=== PATIENT | male | born 1950 | race Caucasian/White ===

== ENCOUNTER 2019-02-01 16:02 | Emergency (ER) | payer OTHER ==
--- OUTSIDE RECORDS SUMMARY | 2019-02-01 16:05 | XMS REPORT ---
:1950 Author Organization [facility] Address [address] [place] [address] [address] [place] [address] Care Team Providers Name Role Phone JULIAN ESPINOSA Unavailable Unavailable HERNAN BARAJAS Unavailable Unavailable MANDI RODRIGUEZ Unavailable Unavailable Problems This patient has no known problems. Allergies, Adverse Reactions, Alerts This patient has no known allergies or adverse reactions. Medications This patient has no known medications. Results Test Description Test Time Test Comments Text Results Atomic Results Result Comments ALPHA FETOPROTEIN (AFP), TUMOR MARKER 2018-12-01 12:04:00 Test Item Value Reference Range Comments ALPHA-FETOPROTEIN (BEAKER) (test ggkr=6179) 1187.5 ng/mL <10.0 HEPATIC FUNCTION [id number] 11:53:00 Test Item Value Reference Range Comments TOTAL PROTEIN (BEAKER) (test cqkh=552) 7.5 gm/dL 6.0-8.3 ALBUMIN (BEAKER) (test iaob=9063) 4.2 g/dL 3.5-5.0 BILIRUBIN TOTAL (BEAKER) (test jlbt=498) 0.5 mg/dL 0.2-1.2 BILIRUBIN DIRECT (BEAKER) (test tkkt=967) 0.3 mg/dL 0.1-0.5 ALKALINE PHOSPHATASE (BEAKER) (test ixjz=117) 84 U/L 40-150 AST (SGOT) (BEAKER) (test pcns=545) 24 U/L 5-34 ALT (SGPT) (BEAKER) (test aypu=680) 28 U/L 6-55 BASIC METABOLIC [id number] 11:53:00 Test Item Value Reference Range Comments SODIUM (BEAKER) (test 139 meq/L 136-145 wxpd=175) POTASSIUM (BEAKER) (test 4.0 meq/L 3.5-5.1 ohws=776) CHLORIDE (BEAKER) (test 105 meq/L 98-107 cigw=517) CO2 (BEAKER) (test 26 meq/L 22-29 apev=405) BLOOD UREA NITROGEN 17 mg/dL 7-21 (BEAKER) (test jtcx=432) CREATININE (BEAKER) (test 0.79 mg/dL 0.57-1.25 tdlk=973) GLUCOSE RANDOM (BEAKER) 97 mg/dL 70-105 (test dhhh=277) CALCIUM (BEAKER) (test 9.6 mg/dL 8.4-10.2 kbhj=409) EGFR (BEAKER) (test 98 mL/min/1.73 sq m ESTIMATED GFR IS NOT vapi=3977) ACCURATE CREATININE CLEARANCE IN PREDICTING GLOMERULAR FILTRATION RATE. ESTIMATED GFR IS NOT APPLICABLE FOR DIALYSIS PATIENTS. PROTHROMBIN [id number] 10:49:00 Test Item Value Reference Range Comments PROTIME (BEAKER) (test khxf=829) 13.6 seconds 11.9-14.2 INR (BEAKER) (test ebbt=118) 1.1 <=5.9 Effective 08/02/2018: PT Reference Range ChangeNew: 11.9-14.2 Previous: 11.7- 14.7RECOMMENDED COUMADIN/WARFARIN INR THERAPY RANGESSTANDARD DOSE: 2.0-3.0 Includes: PROPHYLAXIS for venous thrombosis, systemic embolization; TREATMENT for venous thrombosis and/or pulmonary embolus.HIGH RISK: Target INR is2.5-3.5 for patients wiht mechanical heart valves.CBC W/PLT COUNT & AUTO [id number] 10:43:00 Test Item Value Reference Range Comments WHITE BLOOD CELL COUNT (BEAKER) (test orpz=716) 5.2 K/ L 3.5-10.5 RED BLOOD CELL COUNT (BEAKER) (test uair=554) 4.17 M/ L 4.63-6.08 HEMOGLOBIN (BEAKER) (test qbhf=391) 13.9 GM/DL 13.7-17.5 HEMATOCRIT (BEAKER) (test zarw=840) 41.7 % 40.1-51.0 MEAN CORPUSCULAR VOLUME (BEAKER) (test ekoq=479) 100.0 fL 79.0-92.2 MEAN CORPUSCULAR HEMOGLOBIN (BEAKER) (test 33.3 pg 25.7-32.2 rtuv=435) MEAN CORPUSCULAR HEMOGLOBIN CONC (BEAKER) (test 33.3 GM/DL 32.3-36.5 yfqf=154) RED CELL DISTRIBUTION WIDTH (BEAKER) (test 12.2 % 11.6-14.4 xkmq=252) PLATELET COUNT (BEAKER) (test ljgf=197) 138 K/CU MM 150-450 MEAN PLATELET VOLUME (BEAKER) (test qogo=687) 9.9 fL 9.4-12.4 NUCLEATED RED BLOOD CELLS (BEAKER) (test 0 /100 WBC 0-0 ldmf=205) NEUTROPHILS RELATIVE PERCENT (BEAKER) (test 68 % cans=301) LYMPHOCYTES RELATIVE PERCENT (BEAKER) (test 24 % nxfg=327) MONOCYTES RELATIVE PERCENT (BEAKER) (test 8 % loda=876) EOSINOPHILS RELATIVE PERCENT (BEAKER) (test 1 % xvan=883) BASOPHILS RELATIVE PERCENT (BEAKER) (test 0 % dpdy=112) NEUTROPHILS ABSOLUTE COUNT (BEAKER) (test 3.55 K/ L 1.78-5.38 nwvp=607) LYMPHOCYTES ABSOLUTE COUNT (BEAKER) (test 1.23 K/ L 1.32-3.57 fbtm=289) MONOCYTES ABSOLUTE COUNT (BEAKER) (test 0.39 K/ L 0.30-0.82 kmlh=937) EOSINOPHILS ABSOLUTE COUNT (BEAKER) (test 0.03 K/ L 0.04-0.54 mtoh=465) BASOPHILS ABSOLUTE COUNT (BEAKER) (test 0.02 K/ L 0.01-0.08 fhsl=007) IMMATURE GRANULOCYTES-RELATIVE PERCENT (BEAKER) 0 % 0-1 (test zzqg=0631) [id number] 08:57:00 Test Item Value Reference Range Comments POC-CREATININE (BEAKER) 0.8 mg/dL 0.6-1.3 TESTED AT [facility] [address] [facility] (test svnu=6722) [facility] [address] POC-EGFR (BEAKER) (test 96 mL/min/1.73M2 hmpx=4276) MR, ABDOMEN, [id number] 11:32:00Referring: Dr. Luisa Benson, HCC s /p TACE Had Y-90 mapping and bland embolization Oct 2018FINAL REPORT INDICATION:Cirrhosis and history of hepatocellular carcinoma status post radioembolization October 23, 2018 and prior chemoembolization most recently June 15, 2018. COMPARISON: Abdomen MR September 11, 2018 TECHNIQUE: MR of the Abdomen WITHOUT and WITH intravenous contrast. FINDINGS:Since September 11, 2018 there has been increase in size of vein-invasive heterogeneously enhancing segment VIII mass. It measures 7 x 6 x 5 cm and previously measured 6 x 4 x 3 cm (by my own measurement). It invades the intrahepatic cava extending into the suprahepatic and intrahepatic cava. Tumor does not extend into the right atrium or to the level of the renal vein confluences. Perfusion anomaly in the posterior segment from venous obstruction. Main portal vein is patent and not invaded. Main portal vein diameter is 1.5 cm. Spleen enlarged measuring 14 cm coronal long axis. No varices and no ascites. Several gallstones are noted. No biliary ductal dilatation. Pancreas and adrenal glands unremarkable. Several benign renal cortical cysts. No renal mass or hydronephrosis. Visualized bowel loops unremarkable. No suspicious marrow replacing lesion. No pleural effusion. IMPRESSION:Cirrhosis and enlarging cava-invasive hepatocellular carcinoma. Signed: Hi Forbes MDReport Verified Date/Time: 11/30/2018 11:32:07 Reading Location: [facility] C013Y CT Body Reading Room ANG, VISCERAL [id number] 15 :15:00y90 mappingFINAL REPORT Microaggregated Albumin Injection to evaluate for shunting priorto SIR sphere injection:Hepatic angiography and MAA embolization Indication: HCC with residual segment six lesion status post TACE Modality: Sonography and fluoroscopy. Sedation: Moderate sedation was administered. 2 mg of Versed and 150 mcg of fentanyl IV was used for moderate sedation monitored under my direction. Total intra- service time of sedation was 60 minutes. The patient's vital signs were monitored throughout the procedure and recorded in the patient's medical record by the nurse. Search Specialist: Andre Escamilla MD. Records Supervisor: MD Kandi ( Fellow) Approach: Right common femoral artery Estimated blood loss: < 5 cc. Specimen: None. Fluoroscopy Time: 13.7 min.Reference Air Kerma (Ka, r): 843mGy. Technique: Informed written consent was obtained. Discussion of risks, benefits, and alternatives were made with the patient. The patient expressed understanding and agreed to proceed. A universaltimeout was performed prior to starting the procedure. All elements maximal sterile barrier technique was utilized for this procedure, including utilization of sterile scrub solution for skin prep, a large sterile sheet to cover the areas of the patient that were not prepped, and hand hygiene, mask, head covering, and sterile gown for performing radiologist and scrub technologist. Initial ultrasoundimages demonstrate patent right common femoral artery. Using ultrasound guidance, following acquisition of permanent images, the right common femoral artery was accessed using a 21- gauge micropuncture needle. A 0.018 inch wire was advanced into the abdominal aorta. The needle was exchanged for a 4 Bhutanese micropuncture sheath. The micropuncture sheath was exchanged over a 0.035 Bentson wire for a 5 Bhutanese x 10 cm vascular sheath. A 5 Bhutanese Babcock B catheter was used to cannulate the celiac axis. A DSA run was performed. Next, a 2.8 Bhutanese microcatheter was advanced over 0.016 inch microwire into theleft hepatic artery. A DSA was run was performed. Next, the microcatheter was manipulated into the right hepatic artery. A DSA run was performed. The catheter was advanced distal to the cystic artery. A DSA run was performed. From this location, technetium 99m labeled MAA was administered in conjunction with Dr. Aguilar of the nuclear medicine department. The microcatheter and base catheter were removed. Next, the inferior right phrenic artery was cannulated using a 5 Bhutanese Alena catheter. A 2.8 Bhutanese microcatheter was advanced into the inferior right phrenic artery and a DSA run was performed.The microcatheter was then advanced into a branch arising off the inferior right phrenic artery supplying the abnormal hepatic hypervascularity. From this location embolization was performed using 300-500 um embospheres until near stagnant flow was achieved. The microcatheter was retracted into the proximal inferior right phrenic artery and postembolization DSA was performed. All catheters and wires were removed. Contrast injected to the right femoral sheath. The arteriotomy was closed using a 5 Bhutanese Mynx closure device. Findings:1. Celiac arteriography demonstrates patent common hepatic, left gastric, and splenic arteries. No abnormal tumor hypervascularity identified. 2. Left hepatic artery arteriography demonstrates no abnormal tumor hypervascularity. 3. Right hepatic artery arteriography demonstrates no abnormal tumor hypervascularity to correlate with the known residual segment six lesion. Successful technetium 99m labeled MAA administration via the right hepatic artery distal to the takeoff of the cystic artery. 4. Inferior right phrenic arteriography demonstrates subtle abnormal hepatic hypervascularity arising off a branch from the proximal inferior phrenic artery. Given inability to treat this parasitized vessel with radio embolization, decision was made to proceed with bland embolization. Successful bland embolization of the branch arising off the inferior right phrenic artery until near stagnant flow achieved. Postembolization arteriography from the proximal right inferior phrenic artery demonstrates no further abnormal hepatic hypervascularity. 5. Right femoral sheath injection demonstrates patent right common femoral artery and puncture amenable for closure device. Impression: 1. Successful mesenteric/hepatic angiography and pre-radioembolization mapping study with administration of technetium 99m labeled MAA via the right hepatic artery. 2. Successful bland embolization of a parasitized branch arising off the inferior right phrenic artery supplying the residual segment 6 lesion as detailed above. Signed: Andre Escamilla MDReport Verified Date/Time: 10/24/2018 15:15:02Reading Location: [facility] B1 P048 Angio Body Reading Room TUMOR LOCALIZATION, [id number] 09:47:00Referring: Dr. Luisa Naranjo Y90 mapping - Right Lobe Reason for Exam:->y90 mappingFINAL REPORT PROCEDURE: TRACER DISTRIBUTION STUDY, WHOLE BODY with SPECT CPT CODE : 69867, 75262 CLINICAL INDICATION: Hepatocellular carcinoma PROTOCOL: A total of 2.4 mCi of Tc-99m MAA was injected by the nuclear medicine physician via an arterial catheter placed by the interventional radiologist in the right hepatic artery. Planar whole body and spot images of the chest and upper abdomen, as well as tomographic images of the liver and upper abdomen with limited CT correlation were obtained. Hepatopulmonary shunting was calculated by the geometric mean method. FINDINGS: There is irregular tracer distribution within the right lobe of the liver, primarily the posterior and inferior aspects of the right lobe. There is mild tracer accumulation in the kidneys/ urinary system, consistent with expected free pertechnetate activity. Otherwise , there is no tracer distribution outside of the liver in the abdomen. Quantitative analysis indicates 4% shunting of tracer to the lungs. IMPRESSION: 1. Tracer uptake in the liver is consistent with hepatic parenchymal disease and/or focal space occupying disease. 2. There is no abnormal extrahepatic activity . The patient is an acceptable candidate for injection of therapeutic microspheres by this criterion. 3. Shunting to the lungs is in an acceptable range for therapy. 4. Additional clinical assessment is required prior to final acceptance for Y-90 therapy. Signed: Rayshawn Aguilar MDReport Verified Date/ Time: 10/24/2018 09:47:27 Reading Location: [address] [address] Reading Room COMPREHENSIVE METABOLIC [id number] 11:47:00 Test Item Value Reference Range Comments TOTAL PROTEIN (BEAKER) 7.8 gm/dL 6.0-8.3 (test adgh=053) ALBUMIN (BEAKER) (test 4.5 g/dL 3.5-5.0 ywjq=0753) ALKALINE PHOSPHATASE 81 U/L 40-150 (BEAKER) (test dqxh=097) BILIRUBIN TOTAL (BEAKER) 0.8 mg/dL 0.2-1.2 (test aebl=692) SODIUM (BEAKER) (test 138 meq/L 136-145 yxoo=791) POTASSIUM (BEAKER) (test 4.2 meq/L 3.5-5.1 ugyi=139) CHLORIDE (BEAKER) (test 104 meq/L 98-107 dtdn=586) CO2 (BEAKER) (test 25 meq/L 22-29 ljqh=045) BLOOD UREA NITROGEN 16 mg/dL 7-21 (BEAKER) (test spei=027) CREATININE (BEAKER) (test 0.82 mg/dL 0.57-1.25 rbeg=417) GLUCOSE RANDOM (BEAKER) 103 mg/dL 70-105 (test hwdq=868) CALCIUM (BEAKER) (test 9.7 mg/dL 8.4-10.2 cenq=968) AST (SGOT) (BEAKER) (test 25 U/L 5-34 nave=179) ALT (SGPT) (BEAKER) (test 25 U/L 6-55 ndwt=584) EGFR (BEAKER) (test 94 mL/min/1.73 sq m ESTIMATED GFR IS NOT mgmi=2367) ACCURATE CREATININE CLEARANCE IN PREDICTING GLOMERULAR FILTRATION RATE. ESTIMATED GFR IS NOT APPLICABLE FOR DIALYSIS PATIENTS. BILIRUBIN, [id number] 11:47:00 Test Item Value Reference Range Comments BILIRUBIN DIRECT (BEAKER) (test xpif=230) 0.4 mg/dL 0.1-0.5 PROTHROMBIN [id number] 11:42:00 Test Item Value Reference Range Comments PROTIME (BEAKER) (test qnzi=311) 13.6 seconds 11.9-14.2 INR (BEAKER) (test hvis=562) 1.1 <=5.9 Effective 08/02/2018: PT Reference Range ChangeNew: 11.9-14.2 Previous: 11.7- 14.7RECOMMENDED COUMADIN/WARFARIN INR THERAPY RANGESSTANDARD DOSE: 2.0-3.0 Includes: PROPHYLAXIS for venous thrombosis, systemic embolization; TREATMENT for venous thrombosis and/or pulmonary embolus.HIGH RISK: Target INR is2.5-3.5 for patients wiht mechanical heart valves.[id number] 11:42:00 Test Item Value Reference Range Comments PARTIAL THROMBOPLASTIN TIME (BEAKER) (test 33.0 seconds 22.5-36.0 epmu=646) CBC W/PLT COUNT & AUTO [id number] 11:23:00 Test Item Value Reference Range Comments WHITE BLOOD CELL COUNT (BEAKER) (test ufri=888) 5.6 K/ L 3.5-10.5 RED BLOOD CELL COUNT (BEAKER) (test ltzb=626) 4.43 M/ L 4.63-6.08 HEMOGLOBIN (BEAKER) (test kdqq=444) 15.0 GM/DL 13.7-17.5 HEMATOCRIT (BEAKER) (test zpfd=271) 43.6 % 40.1-51.0 MEAN CORPUSCULAR VOLUME (BEAKER) (test bund=512) 98.4 fL 79.0-92.2 MEAN CORPUSCULAR HEMOGLOBIN (BEAKER) (test 33.9 pg 25.7-32.2 krqs=138) MEAN CORPUSCULAR HEMOGLOBIN CONC (BEAKER) (test 34.4 GM/DL 32.3-36.5 lhve=311) RED CELL DISTRIBUTION WIDTH (BEAKER) (test 12.5 % 11.6-14.4 vkps=462) PLATELET COUNT (BEAKER) (test sxqx=956) 151 K/CU MM 150-450 MEAN PLATELET VOLUME (BEAKER) (test hesv=435) 9.1 fL 9.4-12.4 NUCLEATED RED BLOOD CELLS (BEAKER) (test 0 /100 WBC 0-0 oiwp=751) NEUTROPHILS RELATIVE PERCENT (BEAKER) (test 62 % qrme=062) LYMPHOCYTES RELATIVE PERCENT (BEAKER) (test 27 % usmg=304) MONOCYTES RELATIVE PERCENT (BEAKER) (test 9 % zimp=557) EOSINOPHILS RELATIVE PERCENT (BEAKER) (test 1 % afqh=065) BASOPHILS RELATIVE PERCENT (BEAKER) (test 1 % igfe=177) NEUTROPHILS ABSOLUTE COUNT (BEAKER) (test 3.50 K/ L 1.78-5.38 yzpd=836) LYMPHOCYTES ABSOLUTE COUNT (BEAKER) (test 1.50 K/ L 1.32-3.57 damx=385) MONOCYTES ABSOLUTE COUNT (BEAKER) (test 0.51 K/ L 0.30-0.82 mymn=002) EOSINOPHILS ABSOLUTE COUNT (BEAKER) (test 0.06 K/ L 0.04-0.54 xood=174) BASOPHILS ABSOLUTE COUNT (BEAKER) (test 0.04 K/ L 0.01-0.08 xude=462) IMMATURE GRANULOCYTES-RELATIVE PERCENT (BEAKER) 0 % 0-1 (test ihcg=3157) HEPATIC FUNCTION [id number] 13:50:00 Test Item Value Reference Range Comments TOTAL PROTEIN (BEAKER) (test ggql=539) 8.2 gm/dL 6.0-8.3 ALBUMIN (BEAKER) (test qwfp=7513) 4.5 g/dL 3.5-5.0 BILIRUBIN TOTAL (BEAKER) (test txak=628) 0.5 mg/dL 0.2-1.2 BILIRUBIN DIRECT (BEAKER) (test dakk=004) 0.2 mg/dL 0.1-0.5 ALKALINE PHOSPHATASE (BEAKER) (test soun=322) 85 U/L 40-150 AST (SGOT) (BEAKER) (test hrhe=268) 25 U/L 5-34 ALT (SGPT) (BEAKER) (test mzub=183) 25 U/L 6-55 BASIC METABOLIC [id number] 13:50:00 Test Item Value Reference Range Comments SODIUM (BEAKER) (test 140 meq/L 136-145 dnpe=213) POTASSIUM (BEAKER) (test 4.5 meq/L 3.5-5.1 zphl=253) CHLORIDE (BEAKER) (test 105 meq/L 98-107 esze=339) CO2 (BEAKER) (test 27 meq/L 22-29 kjav=056) BLOOD UREA NITROGEN 16 mg/dL 7-21 (BEAKER) (test bjyl=630) CREATININE (BEAKER) (test 0.80 mg/dL 0.57-1.25 gmua=117) GLUCOSE RANDOM (BEAKER) 89 mg/dL 70-105 (test lfvz=641) CALCIUM (BEAKER) (test 9.6 mg/dL 8.4-10.2 jqaf=845) EGFR (BEAKER) (test 96 mL/min/1.73 sq m ESTIMATED GFR IS NOT yzzg=9957) ACCURATE CREATININE CLEARANCE IN PREDICTING GLOMERULAR FILTRATION RATE. ESTIMATED GFR IS NOT APPLICABLE FOR DIALYSIS PATIENTS. [id number] 13:36:00 Test Item Value Reference Range Comments PARTIAL THROMBOPLASTIN TIME (BEAKER) (test 32.4 seconds 22.5-36.0 mibf=401) PROTHROMBIN [id number] 13:35:00 Test Item Value Reference Range Comments PROTIME (BEAKER) (test uzbl=413) 12.7 seconds 11.9-14.2 INR (BEAKER) (test zpdk=645) 1.0 <=5.9 Effective 08/02/2018: PT Reference Range ChangeNew: 11.9-14.2 Previous: 11.7- 14.7RECOMMENDED COUMADIN/WARFARIN INR THERAPY RANGESSTANDARD DOSE: 2.0-3.0 Includes: PROPHYLAXIS for venous thrombosis, systemic embolization; TREATMENT for venous thrombosis and/or pulmonary embolus.HIGH RISK: Target INR is2.5-3.5 for patients wiht mechanical heart valves.CBC W/PLT COUNT & AUTO [id number] 13:29:00 Test Item Value Reference Range Comments WHITE BLOOD CELL COUNT (BEAKER) (test fgzk=304) 6.1 K/ L 3.5-10.5 RED BLOOD CELL COUNT (BEAKER) (test kkmv=447) 4.55 M/ L 4.63-6.08 HEMOGLOBIN (BEAKER) (test bbli=493) 15.3 GM/DL 13.7-17.5 HEMATOCRIT (BEAKER) (test ozkc=398) 45.0 % 40.1-51.0 MEAN CORPUSCULAR VOLUME (BEAKER) (test jizp=102) 98.9 fL 79.0-92.2 MEAN CORPUSCULAR HEMOGLOBIN (BEAKER) (test 33.6 pg 25.7-32.2 ofwc=994) MEAN CORPUSCULAR HEMOGLOBIN CONC (BEAKER) (test 34.0 GM/DL 32.3-36.5 daju=291) RED CELL DISTRIBUTION WIDTH (BEAKER) (test 12.4 % 11.6-14.4 gayj=184) PLATELET COUNT (BEAKER) (test tetn=441) 176 K/CU MM 150-450 MEAN PLATELET VOLUME (BEAKER) (test tmgb=667) 8.7 fL 9.4-12.4 NUCLEATED RED BLOOD CELLS (BEAKER) (test 0 /100 WBC 0-0 hwau=220) NEUTROPHILS RELATIVE PERCENT (BEAKER) (test 64 % zasg=563) LYMPHOCYTES RELATIVE PERCENT (BEAKER) (test 25 % rwkz=318) MONOCYTES RELATIVE PERCENT (BEAKER) (test 9 % iasn=137) EOSINOPHILS RELATIVE PERCENT (BEAKER) (test 1 % efqj=851) BASOPHILS RELATIVE PERCENT (BEAKER) (test 1 % wzpv=157) NEUTROPHILS ABSOLUTE COUNT (BEAKER) (test 3.88 K/ L 1.78-5.38 telx=250) LYMPHOCYTES ABSOLUTE COUNT (BEAKER) (test 1.53 K/ L 1.32-3.57 vawk=366) MONOCYTES ABSOLUTE COUNT (BEAKER) (test 0.54 K/ L 0.30-0.82 vfsc=353) EOSINOPHILS ABSOLUTE COUNT (BEAKER) (test 0.05 K/ L 0.04-0.54 nuqq=985) BASOPHILS ABSOLUTE COUNT (BEAKER) (test 0.03 K/ L 0.01-0.08 glnz=345) IMMATURE GRANULOCYTES-RELATIVE PERCENT (BEAKER) 0 % 0-1 (test spyx=1811) MR, ABDOMEN, [id number] 14:25:00Referring: Dr. Luisa Flood Phase Liver Protocol3 Sonali MRIFINAL REPORT TECHNIQUE: MRI of the abdomen WITHOUT and WITH intravenous contrast. INDICATION: 68-year-old man with cirrhosis and hepatocellular carcinoma. COMPARISON: Outside abdomen MRI . FINDINGS: LOWER THORAX: Unremarkable. LIVER: Cirrhotic morphology of the liver. Increased size from 2.7 x 4.7 cm to 3.2 x 6 cm of the lesion in segment VII adjacent to the inferior vena cava. A large majority of the lesion is nonenhancing with thin linear areas of progressive enhancement within the lesion as well as progressively enhancing pseudocapsule. There is a 2.4 x 2.9 cm component of the lesion inferiorly with mild early enhancement as well as washout and pseudocapsule (best seen on axial delayed postcontrast series image 51); this component abuts the inferior vena cava and right diaphragmatic bhumika without definite invasion. Unchanged subcentimeter cystic structures in the periphery of segment VII.BILIARY: Cholelithiasis without gallbladder wall thickening or pericholecystic edema. No biliary ductal dilatation or filling defect.SPLEEN: No splenomegaly.PANCREAS: No focal masses or ductal dilatation. ADRENALS: No adrenal nodules.KIDNEYS/URETERS: No hydronephrosis or solid mass lesions. Bilateral renal cysts measure up to 1.6 x 0.9 cm on the right and up to 1.1 x 2 cm on the left. PERITONEUM/RETROPERITONEUM: No free fluid.LYMPH NODES : No lymphadenopathy.VESSELS: Nonenhancing and nonocclusive thrombus extends from the segment VII lesion into the adjacent inferior vena cava. Portal system is patent. Main portal vein measures 1.6 cm in diameter. Abdominal aorta is normal in caliber. GI TRACT: No distention or wall thickening. BONES AND SOFT TISSUES: Degenerative changes of the visualized spine. Soft tissues are unremarkable. IMPRESSION:Cirrhosis. Increased size of the 6 cm hepatocellular carcinoma in segment VII, a majority of which is nonenhancing likely due to necrosis. A 2.9 cm component of the lesion appears viable. The viable component abuts the inferior vena cava and right diaphragmatic bhumika without definite invasion. Nonocclusive bland thrombus extends from the lesion to the inferior vena cava. Cholelithiasis. Signed: Teagan Massey MDReport Verified Date/Time: 09/11/2018 14:25:55 Reading Location: [address] Radiology Reading Room Electronicallysigned by: TEAGAN MASSEY MD on 09/11/2018 02:25 PMALPHA FETOPROTEIN (AFP), TUMOR [id number] 11:04:00 Test Item Value Reference Range Comments ALPHA-FETOPROTEIN (BEAKER) (test ouka=5549) 611.6 ng/mL <10.0 [id number] 10:37:00 Test Item Value Reference Range Comments POC-CREATININE (BEAKER) 0.7 mg/dL 0.6-1.3 TESTED AT [facility] [address] (test fjgx=7052) [facility] [address] POC-EGFR (BEAKER) (test 112 mL/min/1.73M2 qfci=0536) BASIC METABOLIC [id number] 10:29:00 Test Item Value Reference Range Comments SODIUM (BEAKER) (test 141 meq/L 136-145 kuxq=233) POTASSIUM (BEAKER) (test 4.1 meq/L 3.5-5.1 Specimen slightly qeae=843) hemolyzed CHLORIDE (BEAKER) (test 105 meq/L 98-107 fabx=981) CO2 (BEAKER) (test 27 meq/L 22-29 kgjl=591) BLOOD UREA NITROGEN 15 mg/dL 7-21 (BEAKER) (test btgk=464) CREATININE (BEAKER) (test 0.80 mg/dL 0.57-1.25 Specimen slightly yzjy=211) hemolyzed GLUCOSE RANDOM (BEAKER) 143 mg/dL 70-105 (test urgw=639) CALCIUM (BEAKER) (test 9.6 mg/dL 8.4-10.2 xbzq=000) EGFR (BEAKER) (test 96 mL/min/1.73 sq m ESTIMATED GFR IS NOT wcae=0624) ACCURATE CREATININE CLEARANCE IN PREDICTING GLOMERULAR FILTRATION RATE. ESTIMATED GFR IS NOT APPLICABLE FOR DIALYSIS PATIENTS. HEPATIC FUNCTION [id number] 10:29:00 Test Item Value Reference Range Comments TOTAL PROTEIN (BEAKER) (test 7.7 gm/dL 6.0-8.3 Specimen slightly hemolyzed qjms=386) ALBUMIN (BEAKER) (test 4.0 g/dL 3.5-5.0 Specimen slightly hemolyzed uixm=5210) BILIRUBIN TOTAL (BEAKER) (test 0.5 mg/dL 0.2-1.2 Specimen slightly hemolyzed eivc=115) BILIRUBIN DIRECT (BEAKER) (test 0.2 mg/dL 0.1-0.5 Specimen slightly hemolyzed mtro=667) ALKALINE PHOSPHATASE (BEAKER) 92 U/L 40-150 (test cpxl=690) AST (SGOT) (BEAKER) (test 22 U/L 5-34 Specimen slightly hemolyzed owim=675) ALT (SGPT) (BEAKER) (test 42 U/L 6-55 Specimen slightly hemolyzed orly=132) PROTHROMBIN [id number] 10:18:00 Test Item Value Reference Range Comments PROTIME (BEAKER) (test fhcm=076) 12.8 seconds 11.9-14.2 INR (BEAKER) (test iawb=224) 1.0 <=5.9 Effective 08/02/2018: PT Reference Range ChangeNew: 11.9-14.2 Previous: 11.7- 14.7RECOMMENDED COUMADIN/WARFARIN INR THERAPY RANGESSTANDARD DOSE: 2.0-3.0 Includes: PROPHYLAXIS for venous thrombosis, systemic embolization; TREATMENT for venous thrombosis and/or pulmonary embolus.HIGH RISK: Target INR is2.5-3.5 for patients wiht mechanical heart valves.CBC W/PLT COUNT & AUTO [id number] 10:03:00 Test Item Value Reference Range Comments WHITE BLOOD CELL COUNT (BEAKER) (test ilke=571) 7.6 K/ L 3.5-10.5 RED BLOOD CELL COUNT (BEAKER) (test mnrl=187) 4.86 M/ L 4.63-6.08 HEMOGLOBIN (BEAKER) (test kiav=370) 16.1 GM/DL 13.7-17.5 HEMATOCRIT (BEAKER) (test zjbk=780) 47.9 % 40.1-51.0 MEAN CORPUSCULAR VOLUME (BEAKER) (test jbit=620) 98.6 fL 79.0-92.2 MEAN CORPUSCULAR HEMOGLOBIN (BEAKER) (test 33.1 pg 25.7-32.2 epck=783) MEAN CORPUSCULAR HEMOGLOBIN CONC (BEAKER) (test 33.6 GM/DL 32.3-36.5 phab=399) RED CELL DISTRIBUTION WIDTH (BEAKER) (test 12.2 % 11.6-14.4 sawy=425) PLATELET COUNT (BEAKER) (test fkcu=665) 221 K/CU MM 150-450 MEAN PLATELET VOLUME (BEAKER) (test jpyb=107) 8.7 fL 9.4-12.4 NUCLEATED RED BLOOD CELLS (BEAKER) (test 0 /100 WBC 0-0 qati=207) NEUTROPHILS RELATIVE PERCENT (BEAKER) (test 68 % xjhx=146) LYMPHOCYTES RELATIVE PERCENT (BEAKER) (test 23 % sdwc=148) MONOCYTES RELATIVE PERCENT (BEAKER) (test 8 % bwku=203) EOSINOPHILS RELATIVE PERCENT (BEAKER) (test 1 % oaqo=303) BASOPHILS RELATIVE PERCENT (BEAKER) (test 1 % djrm=970) NEUTROPHILS ABSOLUTE COUNT (BEAKER) (test 5.17 K/ L 1.78-5.38 mazp=404) LYMPHOCYTES ABSOLUTE COUNT (BEAKER) (test 1.71 K/ L 1.32-3.57 vgmd=308) MONOCYTES ABSOLUTE COUNT (BEAKER) (test 0.57 K/ L 0.30-0.82 mmci=767) EOSINOPHILS ABSOLUTE COUNT (BEAKER) (test 0.08 K/ L 0.04-0.54 ajak=621) BASOPHILS ABSOLUTE COUNT (BEAKER) (test 0.05 K/ L 0.01-0.08 gouq=354) IMMATURE GRANULOCYTES-RELATIVE PERCENT (BEAKER) 0 % 0-1 (test ftlf=7970) ANG, EMBOLIZATION, EXTENSIVE - [id number] 14:32:00Referring: Dr. Luisa Nelson liver massReason for Exam:->liver cancer, repeat TACEFINAL REPORT Hepatic angiogram History: HCC. Outside MRI suggests possible residual disease prior TACEd lesion. Modality: Fluoroscopy Sedation: Versed 1.0 mg and fentanyl 50 mcg was given intravenously for conscious sedation. Vital signs were monitored throughout the procedure by a nurse, and remained stable. Physician intra-service time was 35 minutes. Anesthesia: Two percent Lidocaine without epinephrine. Approach: Right common femoral artery Estimated blood loss: < 5cc. Specimen: None. electroslag welding machine operator: Rafael Loza MD. Records Supervisor: Sky Borja MD. Fluoroscopy Time: 10.3 min.Reference Air Kerma (Ka, r ): 166 mGy. Technique: Informed written consent was obtained. Discussion of risks, benefits, and alternatives were made with the patient. The patient expressed understanding and agreed to proceed. A universal timeout was performed prior to starting the procedure. All elements maximal sterile barrier technique was utilized for this procedure, including utilization of sterile scrub solution for skin prep, a large sterile sheet to cover the areas of the patientthat were not prepped, and hand hygiene, mask, head covering, and sterile gown for performing radiologist and scrub technologist. Ultrasound demonstrated a patent right common femoral artery.Gauge micropuncture needle was used to access the right common femoral artery under direct ultrasound guidance after local anesthesia with lidocaine. An ultrasound image was saved into PACS. The access was sealedlobe in the standard fashion and a 5 Bhutanese vascular sheath was placed. A Babcock 2.5 reverse curve catheter was used to select the right inferior phrenic artery which was known to supply the previously treated hepatic lesion. A renegade high flow microcatheter was advanced to the Babcock B catheter into the right inferior phrenic artery. Digital subtraction angiography was performed which demonstrated no evidence of hypervascular blush to indicate residual tumor. The microcatheter was then removed. Thebase catheter was then used to select the celiac axis subtraction angiography was performed which demonstrated no evidence of hypervascular blush. The Babcock catheter was then used to select the superior mesenteric artery for digital subtraction angiography. No hypervascular hepatic blush was identified. The Babcock catheter was then removed. The sheath angiogram was performed to evaluate the right common femoral artery access. No contraindications were identified in to place a closure device. A 5 Bhutanese minx device was then deployed for hemostasis as the sheath was removed. The patient tolerated the procedure well. Impression: No evidence of residual hepatic arterial blush to suggest residual tumor. No TACE was performed. Recommend follow-up MRI in three months at [facility]. Signed: Rafael Loza Verified Date/Time: 06/16/2018 14:32:27 Reading Location: [facility] P048 Angio Body Reading Room 02 :32 PMHEPATIC FUNCTION [id number] 07:00:00 Test Item Value Reference Range Comments TOTAL PROTEIN (BEAKER) (test liic=026) 7.1 gm/dL 6.0-8.3 ALBUMIN (BEAKER) (test djbo=5951) 4.1 g/dL 3.5-5.0 BILIRUBIN TOTAL (BEAKER) (test msex=151) 0.8 mg/dL 0.2-1.2 BILIRUBIN DIRECT (BEAKER) (test gtfk=398) 0.3 mg/dL 0.1-0.5 ALKALINE PHOSPHATASE (BEAKER) (test mjav=045) 81 U/L 40-150 AST (SGOT) (BEAKER) (test mqix=616) 21 U/L 5-34 ALT (SGPT) (BEAKER) (test zkan=541) 26 U/L 6-55 COMPREHENSIVE METABOLIC [id number] 07:00:00 Test Item Value Reference Range Comments TOTAL PROTEIN (BEAKER) 7.1 gm/dL 6.0-8.3 (test jugq=481) ALBUMIN (BEAKER) (test 4.1 g/dL 3.5-5.0 ncmu=8419) ALKALINE PHOSPHATASE 81 U/L 40-150 (BEAKER) (test vtdp=983) BILIRUBIN TOTAL (BEAKER) 0.8 mg/dL 0.2-1.2 (test isjn=408) SODIUM (BEAKER) (test 140 meq/L 136-145 bvqr=026) POTASSIUM (BEAKER) (test 4.0 meq/L 3.5-5.1 nnel=515) CHLORIDE (BEAKER) (test 107 meq/L 98-107 kbtg=466) CO2 (BEAKER) (test 25 meq/L 22-29 oylb=331) BLOOD UREA NITROGEN 12 mg/dL 7-21 (BEAKER) (test dvsp=426) CREATININE (BEAKER) (test 0.77 mg/dL 0.57-1.25 orqb=660) GLUCOSE RANDOM (BEAKER) 106 mg/dL 70-105 (test ilbn=126) CALCIUM (BEAKER) (test 9.2 mg/dL 8.4-10.2 caii=382) AST (SGOT) (BEAKER) (test 21 U/L 5-34 nsal=460) ALT (SGPT) (BEAKER) (test 26 U/L 6-55 yild=887) EGFR (BEAKER) (test 101 mL/min/1.73 sq ESTIMATED GFR IS NOT opuz=9730) m ACCURATE CREATININE CLEARANCE IN PREDICTING GLOMERULAR FILTRATION RATE. ESTIMATED GFR IS NOT APPLICABLE FOR DIALYSIS PATIENTS. [id number] 06:38:00 Test Item Value Reference Range Comments PARTIAL THROMBOPLASTIN TIME (BEAKER) (test 32.4 seconds 22.5-36.0 vpto=163) PROTHROMBIN TIME/[id number] 06:37:00 Test Item Value Reference Range Comments PROTIME (BEAKER) (test jcll=990) 13.6 seconds 11.7-14.7 INR (BEAKER) (test efce=509) 1.0 <=5.9 RECOMMENDED COUMADIN/WARFARIN INR THERAPY RANGESSTANDARD DOSE: 2.0 - 3.0 Includes: PROPHYLAXIS forvenous thrombosis, systemic embolization; TREATMENT for venous thrombosis and/or pulmonary embolus.HIGH RISK: Target INR is 2.5-3.5 for patients with mechanical heart valves.CBC W/PLT COUNT & AUTO [id number] 06:27:00 Test Item Value Reference Range Comments WHITE BLOOD CELL COUNT (BEAKER) (test dxqr=809) 5.3 K/ L 3.5-10.5 RED BLOOD CELL COUNT (BEAKER) (test xhuf=039) 4.51 M/ L 4.63-6.08 HEMOGLOBIN (BEAKER) (test odyn=765) 15.3 GM/DL 13.7-17.5 HEMATOCRIT (BEAKER) (test mtfs=369) 43.5 % 40.1-51.0 MEAN CORPUSCULAR VOLUME (BEAKER) (test affw=135) 96.5 fL 79.0-92.2 MEAN CORPUSCULAR HEMOGLOBIN (BEAKER) (test 33.9 pg 25.7-32.2 foyl=690) MEAN CORPUSCULAR HEMOGLOBIN CONC (BEAKER) (test 35.2 GM/DL 32.3-36.5 ewsj=060) RED CELL DISTRIBUTION WIDTH (BEAKER) (test 11.8 % 11.6-14.4 emrq=402) PLATELET COUNT (BEAKER) (test wezt=273) 124 K/CU MM 150-450 MEAN PLATELET VOLUME (BEAKER) (test xund=167) 9.3 fL 9.4-12.4 NUCLEATED RED BLOOD CELLS (BEAKER) (test 0 /100 WBC 0-0 icxz=784) NEUTROPHILS RELATIVE PERCENT (BEAKER) (test 63 % yuon=876) LYMPHOCYTES RELATIVE PERCENT (BEAKER) (test 26 % nbnf=049) MONOCYTES RELATIVE PERCENT (BEAKER) (test 9 % wblo=695) EOSINOPHILS RELATIVE PERCENT (BEAKER) (test 2 % lndx=977) BASOPHILS RELATIVE PERCENT (BEAKER) (test 1 % ufee=962) NEUTROPHILS ABSOLUTE COUNT (BEAKER) (test 3.35 K/ L 1.78-5.38 yzla=914) LYMPHOCYTES ABSOLUTE COUNT (BEAKER) (test 1.36 K/ L 1.32-3.57 vipq=050) MONOCYTES ABSOLUTE COUNT (BEAKER) (test 0.45 K/ L 0.30-0.82 lczj=288) EOSINOPHILS ABSOLUTE COUNT (BEAKER) (test 0.09 K/ L 0.04-0.54 abtt=913) BASOPHILS ABSOLUTE COUNT (BEAKER) (test 0.04 K/ L 0.01-0.08 izba=055) IMMATURE GRANULOCYTES-RELATIVE PERCENT (BEAKER) 0 % 0-1 (test bayg=8311) ANG, EMBOLIZATION, EXTENSIVE - [id number] 17:25:00Referring: Dr. Luisa Cabrera for Exam:->liver cancer, s/p TACE, residual diseaseFINAL REPORT Mesenteric Arteriography and Transarterial Chemoembolization ofthe Liver (TACE) Clinical History: Hypervascular Liver Mass (es) presumed Hepatocellular Carcinoma(s) The patient is a liver transplant candidate. There is no evidence of extrahepatic disease. There is no evidence of vascular invasion. Comparison: No comparisonImages presented: 208Conscious Sedation: Versed 2 mg and fentanyl 100 mcg intravenously Cardiopulmonary monitoring was performed by the attending radiologist and the radiology nurse. Monitoring was performed with pulse oximetry, blood pressure measurements and ECG tracings.Physician Patient Time: 60 minutesModality: Fluoroscopy.Anesthesia: 2% lidocaine without epinephrineApproach: Right common femoral arteryCatheter positioned: Celiac axis and right hepatic artery, left hepatic artery and phrenic artery with superselective catheterization of a right phrenic artery branchContrast: Visipaque 270 65 ccEstimated Blood Loss: less than 10 ccFluoro time (in minutes): 11.1 minutes. Total dose 1189 mGy. 208 images Technique: After informed consent was obtained, the patient was prepped and draped in a sterile manner. Access was obtained via a percutaneous right common femoral arterial approach. An 18 gauge needle was placed into the artery and a .035 inch guide wire was advanced. A 5 Bhutanese sheath was utilized. A 5 greenlandic Babcock catheter was placed selectively into the celiac axis. A 3 Bhutanese microcatheter was super selectively advanced coaxially into the right hepatic artery, left hepatic artery, phrenic artery and renal artery. 21 DSA runs were performed. Celiac Arteriography:This vessel gives rise to the splenic artery common hepatic artery right and left phrenic artery and left gastric artery. There is no evidence of hemodynamically significant stenosis. Reflux visualized both renal arteries. The gastroduodenal artery is also patent.. Right Hepatic Artery:There is no evidence of hemodynamically significant stenosis. There is noevidence of significant blush to the previously embolized tumor.Left hepatic artery there is no evidence of hemodynamically significant stenosis. There is no evidence of a significant blush to the previously described tumor.Renal artery this vessel was selectively catheterized to evaluate the adrenal vessels. There is no evidence of blush to the previously embolized tumor.Right phrenic artery a side branch from the right phrenic artery supplies the medial aspect and inferior aspect of the previouslyembolized tumor. A microcatheter was super selectively placed into the a branch of the right phrenic artery. Chemoembolization was performed with 37 mg of doxorubicin loaded into 70-100 um LC beads.. There was no evidence of arterial portal shunting through the tumor. Post procedure arteriogram:No significant residual. To decrease the likelihood of further collateral flow Ethiodol was utilized. The patient tolerated the procedure well and left the department in the same condition. Hemostasis was achieved by a vascular closure device. At the end of the procedure, the femoral sheath was withdrawn. Local hemostasis was achieved utilizing manual compression and the deployment of the Mynx device. A femoral arteriogram was to evaluate the lumen of the common femoral artery as well as the origin of the femoral profunda artery. The patient tolerated the procedure well without complication. Impression: Successful, uncomplicated transarterial chemoembolization of a right phrenic artery branch performed with conscious sedation. Signed: Tayla Saleh MDRsergioort Verified Date/Time: 10/13/2017 17:25:03 Reading Location: [place] [address] Angio Body Reading Room Electronically signed by:TAYLA SALEH M.D. on 2017 05:25 PMBILIRUBIN, TOTAL AND [id number] 07:46:00 Test Item Value Reference Range Comments BILIRUBIN TOTAL (BEAKER) (test pxrx=597) 0.5 mg/dL 0.2-1.2 BILIRUBIN DIRECT (BEAKER) (test cidu=335) 0.2 mg/dL 0.1-0.5 BASIC METABOLIC [id number] 07:46:00 Test Item Value Reference Range Comments SODIUM (BEAKER) (test 137 meq/L 136-145 pyge=702) POTASSIUM (BEAKER) (test 3.9 meq/L 3.5-5.1 peje=073) CHLORIDE (BEAKER) (test 103 meq/L 98-107 egme=058) CO2 (BEAKER) (test 25 meq/L 22-29 uyhd=347) BLOOD UREA NITROGEN 16 mg/dL 7-21 (BEAKER) (test wpig=735) CREATININE (BEAKER) (test 0.77 mg/dL 0.57-1.25 yzqq=085) GLUCOSE RANDOM (BEAKER) 102 mg/dL 70-105 (test ascf=815) CALCIUM (BEAKER) (test 9.1 mg/dL 8.4-10.2 uyzd=347) EGFR (BEAKER) (test 101 mL/min/1.73 sq m ESTIMATED GFR IS NOT xulh=6590) ACCURATE CREATININE CLEARANCE IN PREDICTING GLOMERULAR FILTRATION RATE. ESTIMATED GFR IS NOT APPLICABLE FOR DIALYSIS PATIENTS. [id number] 07:39:00 Test Item Value Reference Range Comments PROTIME (BEAKER) (test sdra=759) 14.7 seconds 11.7-14.7 INR (BEAKER) (test fboz=600) 1.2 <=5.9 PARTIAL THROMBOPLASTIN TIME (BEAKER) (test 30.6 seconds 22.5-36.0 jgac=157) RECOMMENDED COUMADIN/WARFARIN INR THERAPY RANGESSTANDARD DOSE: 2.0 - 3.0 Includes: PROPHYLAXIS forvenous thrombosis, systemic embolization; TREATMENT for venous thrombosis and/or pulmonary embolus.HIGH RISK: Target INR is 2.5-3.5 for patients with mechanical heart valves.CBC W/PLT COUNT & AUTO [id number] 07:26:00 Test Item Value Reference Range Comments WHITE BLOOD CELL COUNT (BEAKER) (test lnvu=202) 5.2 K/ L 3.5-10.5 RED BLOOD CELL COUNT (BEAKER) (test ghij=168) 4.59 M/ L 4.63-6.08 HEMOGLOBIN (BEAKER) (test rcnj=359) 15.1 GM/DL 13.7-17.5 HEMATOCRIT (BEAKER) (test fkhw=708) 43.5 % 40.1-51.0 MEAN CORPUSCULAR VOLUME (BEAKER) (test rlmz=721) 94.8 fL 79.0-92.2 MEAN CORPUSCULAR HEMOGLOBIN (BEAKER) (test 32.9 pg 25.7-32.2 uhww=391) MEAN CORPUSCULAR HEMOGLOBIN CONC (BEAKER) (test 34.7 GM/DL 32.3-36.5 afrr=235) RED CELL DISTRIBUTION WIDTH (BEAKER) (test 11.9 % 11.6-14.4 czcl=929) PLATELET COUNT (BEAKER) (test kbqq=483) 134 K/CU MM 150-450 MEAN PLATELET VOLUME (BEAKER) (test pjcs=139) 9.6 fL 9.4-12.4 NUCLEATED RED BLOOD CELLS (BEAKER) (test 0 /100 WBC 0-0 dwwg=101) NEUTROPHILS RELATIVE PERCENT (BEAKER) (test 61 % awjx=419) LYMPHOCYTES RELATIVE PERCENT (BEAKER) (test 28 % fcfh=241) MONOCYTES RELATIVE PERCENT (BEAKER) (test 9 % ysoo=108) EOSINOPHILS RELATIVE PERCENT (BEAKER) (test 2 % swho=942) BASOPHILS RELATIVE PERCENT (BEAKER) (test 1 % lhwl=541) NEUTROPHILS ABSOLUTE COUNT (BEAKER) (test 3.13 K/ L 1.78-5.38 gusy=519) LYMPHOCYTES ABSOLUTE COUNT (BEAKER) (test 1.43 K/ L 1.32-3.57 gwwc=926) MONOCYTES ABSOLUTE COUNT (BEAKER) (test 0.46 K/ L 0.30-0.82 wvbo=105) EOSINOPHILS ABSOLUTE COUNT (BEAKER) (test 0.10 K/ L 0.04-0.54 qmtv=779) BASOPHILS ABSOLUTE COUNT (BEAKER) (test 0.04 K/ L 0.01-0.08 zpwn=914) IMMATURE GRANULOCYTES-RELATIVE PERCENT (BEAKER) 0 % 0-1 (test httl=4513) ANG, EMBOLIZATION, EXTENSIVE - [id number] 14:47:00Referring: Dr. Luisa Mg TACEReason for Exam:->hcc, cirrhosis[facility] Mesenteric Arteriography and Transarterial Chemoembolization ofthe Liver (TACE) Clinical History: Hypervascular Liver Mass(es) presumed Hepatocellular Carcinoma(s) The patient is possibly a liver transplant candidate. There is no evidence of extrahepatic disease. There is no evidence of vascular invasion.Comparison: A recent MRIImages presented: 111Conscious Sedation: Versed 2 mg and fentanyl 100 mcg intravenously Cardiopulmonary monitoring was performed by the attending radiologist and the radiology nurse. Monitoring was performed with pulse oximetry, blood pressure measurements and ECG tracings.Physician Patient Time: 60 minutesModality: Fluoroscopy.Anesthesia: 2% lidocaine without epinephrineApproach: Right common femoral arteryCatheter positioned: Selectively in the celiac axis and super selectively in the third order branch of right hepatic arteryContrast: Visipaque 270 65 ccEstimated Blood Loss: less than 10 ccFluoro time (in minutes): 11.1 minutes. Total dose 1189 mg. 111 images Technique:After informed consent was obtained, the patient was prepped and draped in a sterile manner. Access was obtained via a percutaneous right common femoral arterial approach. An 18 gauge needle was placed into the artery and a .035 inch guide wire was advanced. A 5 Bhutanese sheath was utilized. A 5 greenlandic Babcock catheter was placed selectively into the celiac axis. A 3 Bhutanese microcatheter was super selectively advanced coaxially into the third order branch of the right hepatic artery. Six DSA runs were performed. Celiac Arteriography:This vessel gives rise to the left gastric artery splenic artery common hepatic artery gastroduodenal artery. A small middle hepatic artery is suspected. There is no evidence of aneurysm may be malformation or hemodynamically significant stenosis. Right Hepatic Artery:A posterior branch is seen supplying a tumor corresponding to the MR abnormality adjacent to the inferior vena cava. A microcatheter was super selectively placed into the third order branch of the right hepatic artery. Chemoembolization was performed with 75 mg of doxorubicin loaded into 50-100 um LC beads. There was no evidence of arterial portal shunting through the tumor. Post procedure arteriogram:No significant flow was visualized following embolization to the hypervascular lesion. The patient tolerated the procedure well and left the department in the same condition. Hemostasis was achieved by a vascular closure device. At the end of the procedure, the femoral sheath was withdrawn. Local hemostasis was achieved utilizing manual compression and the deployment of the Mynx device. A femoral arteriogram was performed to evaluate the lumen of the common femoral artery as well as the origin of the femoral profunda artery. The patient tolerated the procedure well without complication. Impression:Successful, uncomplicated transarterial chemoembolization of third order branch of right hepatic artery performed with conscious sedation. Signed: Tayla Saleh MDReport Verified Date/Time: 2017 14:47:12 Reading Location: [place] [id number] Angio Body Reading Room COMPREHENSIVE METABOLIC [id number] 06:59:00 Test Item Value Reference Range Comments TOTAL PROTEIN (BEAKER) 6.6 gm/dL 6.0-8.3 (test dzdg=970) ALBUMIN (BEAKER) (test 4.0 g/dL 3.5-5.0 wiju=3923) ALKALINE PHOSPHATASE 64 U/L 40-150 (BEAKER) (test zrnn=966) BILIRUBIN TOTAL (BEAKER) 0.8 mg/dL 0.2-1.2 (test xjdr=336) SODIUM (BEAKER) (test 141 meq/L 136-145 wedp=744) POTASSIUM (BEAKER) (test 3.8 meq/L 3.5-5.1 shea=577) CHLORIDE (BEAKER) (test 108 meq/L 98-107 uwvd=898) CO2 (BEAKER) (test 25 meq/L 22-29 tews=123) BLOOD UREA NITROGEN 15 mg/dL 7-21 (BEAKER) (test iciy=228) CREATININE (BEAKER) (test 0.74 mg/dL 0.57-1.25 tzgy=682) GLUCOSE RANDOM (BEAKER) 115 mg/dL 70-105 (test usyf=517) CALCIUM (BEAKER) (test 9.0 mg/dL 8.4-10.2 hkby=213) AST (SGOT) (BEAKER) (test 23 U/L 5-34 jyiu=847) ALT (SGPT) (BEAKER) (test 20 U/L 6-55 kwqo=303) EGFR (BEAKER) (test 106 mL/min/1.73 sq ESTIMATED GFR IS NOT rrwf=6568) m ACCURATE CREATININE CLEARANCE IN PREDICTING GLOMERULAR FILTRATION RATE. ESTIMATED GFR IS NOT APPLICABLE FOR DIALYSIS PATIENTS. CBC W/PLT COUNT & AUTO [id number] 06:53:00 Test Item Value Reference Range Comments WHITE BLOOD CELL COUNT (BEAKER) (test hjch=432) 4.1 K/ L 3.5-10.5 RED BLOOD CELL COUNT (BEAKER) (test poat=409) 4.40 M/ L 4.63-6.08 HEMOGLOBIN (BEAKER) (test lofs=873) 14.8 GM/DL 13.7-17.5 HEMATOCRIT (BEAKER) (test ukiq=022) 41.4 % 40.1-51.0 MEAN CORPUSCULAR VOLUME (BEAKER) (test rndb=604) 94.1 fL 79.0-92.2 MEAN CORPUSCULAR HEMOGLOBIN (BEAKER) (test 33.6 pg 25.7-32.2 oktz=649) MEAN CORPUSCULAR HEMOGLOBIN CONC (BEAKER) (test 35.7 GM/DL 32.3-36.5 wixf=511) RED CELL DISTRIBUTION WIDTH (BEAKER) (test 11.8 % 11.6-14.4 grrq=339) PLATELET COUNT (BEAKER) (test qycl=884) 129 K/CU MM 150-450 MEAN PLATELET VOLUME (BEAKER) (test ulai=653) 9.6 fL 9.4-12.4 NUCLEATED RED BLOOD CELLS (BEAKER) (test 0 /100 WBC 0-0 vzkf=729) NEUTROPHILS RELATIVE PERCENT (BEAKER) (test 51 % mgjx=895) LYMPHOCYTES RELATIVE PERCENT (BEAKER) (test 37 % kxuf=280) MONOCYTES RELATIVE PERCENT (BEAKER) (test 9 % ckdh=695) EOSINOPHILS RELATIVE PERCENT (BEAKER) (test 1 % yzlj=476) BASOPHILS RELATIVE PERCENT (BEAKER) (test 1 % tbvo=116) NEUTROPHILS ABSOLUTE COUNT (BEAKER) (test 2.10 K/ L 1.78-5.38 myuu=010) LYMPHOCYTES ABSOLUTE COUNT (BEAKER) (test 1.55 K/ L 1.32-3.57 xzkt=385) MONOCYTES ABSOLUTE COUNT (BEAKER) (test 0.39 K/ L 0.30-0.82 vuqf=002) EOSINOPHILS ABSOLUTE COUNT (BEAKER) (test 0.05 K/ L 0.04-0.54 gwli=590) BASOPHILS ABSOLUTE COUNT (BEAKER) (test 0.04 K/ L 0.01-0.08 kbep=363) IMMATURE GRANULOCYTES-RELATIVE PERCENT (BEAKER) 0 % 0-1 (test dkoz=0325) [id number] 06:49:00 Test Item Value Reference Range Comments PROTIME (BEAKER) (test wvly=664) 14.0 seconds 11.7-14.7 INR (BEAKER) (test ffss=853) 1.1 <=5.9 PARTIAL THROMBOPLASTIN TIME (BEAKER) (test 30.8 seconds 22.5-36.0 jija=343) RECOMMENDED COUMADIN/WARFARIN INR THERAPY RANGESSTANDARD DOSE: 2.0 - 3.0 Includes: PROPHYLAXIS forvenous thrombosis, systemic embolization; TREATMENT for venous thrombosis and/or pulmonary embolus.HIGH RISK: Target INR is 2.5-3.5 for patients with mechanical heart valves.IFIES-7-KUNKYTSHRZC QUANTITATION &amp ; [id number] 08:16:00 Test Item Value Reference Range Comments PBNFQ-7-GGCZIKCHHII (QUEST) (test grdu=[id number]) 123 A-1 ANTITRYP PHENOTYP (QUEST) (test azkk=[id number]) SEE BELOW CYTOMEGALOVIRUS ANTIBODY, [id number] 07:20:00 Test Item Value Reference Range Comments CYTOMEGALOVIRUS IGG ANTIBODY (BEAKER) (test Negative jxgu=595) CYTOMEGALOVIRUS ANTIBODY, [id number] 07:20:00 Test Item Value Reference Range Comments CYTOMEGALOVIRUS IGM ANTIBODY (BEAKER) (test Negative cjzf=059) EBV-VCA ANTIBODY, [id number] 07:20:00 Test Item Value Reference Range Comments JOSY-AGUDELO VCA IGG (BEAKER) (test lijl=164) Positive EBV-VCA ANTIBODY, [id number] 07:20:00 Test Item Value Reference Range Comments JOSY-AGUDELO VCA IGM (BEAKER) (test kobg=349) Negative HEMOGLOBIN [id number] 15:27:00 Test Item Value Reference Range Comments HEMOGLOBIN A1C (BEAKER) (test fyce=433) 5.1 % 4.3-6.1 [id number] 12:08:00 Test Item Value Reference Range Comments RPR SCREEN (BEAKER) (test qglm=465) Nonreactive Nonreactive [id number] 12:07:00 Test Item Value Reference Range Comments T4 TOTAL (BEAKER) (test zczj=584) 6.3 ug/dL 4.9-11.7 [id number] 12:07:00 Test Item Value Reference Range Comments T3 TOTAL (BEAKER) (test qmco=208) 119 ng/dL 48-159 [id number] 12:05:00 Test Item Value Reference Range Comments THYROID STIMULATING HORMONE (BEAKER) (test 1.81 uIU/mL 0.35-4.94 hhft=508) VITAMIN D, [id number] 12:05:00 Test Item Value Reference Range Comments VITAMIN D 25-OH (BEAKER) (test auwq=9026) 55.3 ng/mL 6.6-49.9 Effective 12/15/2016: Reference Range ChangeNew: 6.6-49.9 ng/mL Previous: 13.0 -47.8 ng/mLRecommended Vitamin D Target Range: 30.0-40.0 ng/mLURINALYSIS W/ [id number] 11:50:00 Test Item Value Reference Range Comments COLOR (BEAKER) (test rwpp=237) Light Yellow CLARITY (BEAKER) (test xycf=813) Clear SPECIFIC GRAVITY UA (BEAKER) (test ufhe=700) 1.011 1.001-1.035 PH UA (BEAKER) (test aomj=086) 5.5 5.0-8.0 PROTEIN UA (BEAKER) (test vrjl=107) Negative Negative GLUCOSE UA (BEAKER) (test grno=933) Negative Negative KETONES UA (BEAKER) (test fxes=472) Negative Negative BILIRUBIN UA (BEAKER) (test denq=672) Negative Negative BLOOD UA (BEAKER) (test limf=694) Negative Negative NITRITE UA (BEAKER) (test tnll=887) Negative Negative LEUKOCYTE ESTERASE UA (BEAKER) (test karh=931) Negative Negative UROBILINOGEN UA (BEAKER) (test gnwr=985) 0.2 mg/dL 0.2-1.0 RBC UA (BEAKER) (test cxym=513) 1 /HPF WBC UA (BEAKER) (test wmci=598) < /HPF SOURCE(BEAKER) (test rflp=3566) [id number] 10:21:00 Test Item Value Reference Range Comments ETHANOL (BEAKER) (test anyk=247) < mg/dL <=10 [id number] 10:09:00 Test Item Value Reference Range Comments PROSTATE SPECIFIC ANTIGEN (BEAKER) (test jfwd=959) 0.6 ng/mL 0.0-4.0 HEPATITIS A ANTIBODY, [id number] 10:09:00 Test Item Value Reference Range Comments HEPATITIS A IGM ANTIBODY (BEAKER) (test Nonreactive Nonreactive efkn=870) HIV-1 ANTIGEN WITH HIV-1/2 [id number] 10:09:00 Test Item Value Reference Range Comments HIV-1 ANTIGEN WITH HIV 1\T\2 ANTIBODY (2) Nonreactive Nonreactive (BEAKER) (test aeml=2937) [id number] 10:02:00 Test Item Value Reference Range Comments MAGNESIUM (BEAKER) (test 2.3 mg/dL 1.6-2.6 Specimen slightly hemolyzed vakp=582) [id number] 10:02:00 Test Item Value Reference Range Comments PHOSPHORUS (BEAKER) (test 3.4 mg/dL 2.3-4.7 Specimen slightly hemolyzed wkcl=994) URIC [id number] 10:02:00 Test Item Value Reference Range Comments URIC ACID (BEAKER) (test 5.7 mg/dL 2.6-7.2 Specimen slightly hemolyzed hhel=443) COMPREHENSIVE METABOLIC [id number] 10:02:00 Test Item Value Reference Range Comments TOTAL PROTEIN (BEAKER) 7.7 gm/dL 6.0-8.3 Specimen slightly (test asag=205) hemolyzed ALBUMIN (BEAKER) (test 4.5 g/dL 3.5-5.0 Specimen slightly meyo=9621) hemolyzed ALKALINE PHOSPHATASE 78 U/L 40-150 (BEAKER) (test sawt=308) BILIRUBIN TOTAL (BEAKER) 0.6 mg/dL 0.2-1.2 Specimen slightly (test gygd=034) hemolyzed SODIUM (BEAKER) (test 142 meq/L 136-145 tudm=272) POTASSIUM (BEAKER) (test 4.2 meq/L 3.5-5.1 Specimen slightly hofp=731) hemolyzed CHLORIDE (BEAKER) (test 106 meq/L 98-107 ejve=215) CO2 (BEAKER) (test 24 meq/L 22-29 urah=269) BLOOD UREA NITROGEN 15 mg/dL 7-21 (BEAKER) (test cdhp=634) CREATININE (BEAKER) (test 0.75 mg/dL 0.57-1.25 Specimen slightly vgks=425) hemolyzed GLUCOSE RANDOM (BEAKER) 105 mg/dL 70-105 (test yjmn=465) CALCIUM (BEAKER) (test 9.5 mg/dL 8.4-10.2 rzvi=178) AST (SGOT) (BEAKER) (test 23 U/L 5-34 Specimen slightly ipjk=647) hemolyzed ALT (SGPT) (BEAKER) (test 25 U/L 6-55 Specimen slightly ciag=966) hemolyzed EGFR (BEAKER) (test 104 mL/min/1.73 sq ESTIMATED GFR IS NOT tjlc=3833) m ACCURATE CREATININE CLEARANCE IN PREDICTING GLOMERULAR FILTRATION RATE. ESTIMATED GFR IS NOT APPLICABLE FOR DIALYSIS PATIENTS. LIPID [id number] 10:02:00 Test Item Value Reference Range Comments TRIGLYCERIDES (BEAKER) (test 121 mg/dL Specimen slightly hemolyzed ydvc=502) CHOLESTEROL (BEAKER) (test 189 mg/dL Specimen slightly hemolyzed nuqr=154) HDL CHOLESTEROL (BEAKER) (test 50 mg/dL efch=899) LDL CHOLESTEROL CALCULATED 115 mg/dL (BEAKER) (test czog=269) Triglyceride Reference Range: Low Risk <150 Borderline 150- 199 High Risk 200-499 Very High Risk >=500Cholesterol Reference Range: Low Risk <200 Borderline 200-239 High Risk > 240HDL Cholesterol Reference Range: Low Risk >=60 High Risk <40LDL Cholesterol Reference Range: Optimal <100 Near Optimal 100-129 Borderline 130-159 High 160-189 Very High >=190BILIRUBIN, [id number] 10:02:00 Test Item Value Reference Range Comments BILIRUBIN DIRECT (BEAKER) (test 0.2 mg/dL 0.1-0.5 Specimen slightly hemolyzed klml=100) GAMMA GLUTAMYL TRANSFERASE (GGT)2017-05-25 10:02:00 Test Item Value Reference Range Comments GAMMA GLUTAMYL TRANSFERASE 27 U/L 9-64 Specimen slightly hemolyzed (BEAKER) (test auew=653) [id number] 09:52:00 Test Item Value Reference Range Comments TRANSFERRIN (BEAKER) (test pmca=000) 233 mg/dL 174-382 [id number] 09:29:00 Test Item Value Reference Range Comments FIBRINOGEN LEVEL (BEAKER) (test bnmp=058) 226 mg/dl 225-434 [id number] 09:29:00 Test Item Value Reference Range Comments PARTIAL THROMBOPLASTIN TIME (BEAKER) (test 32.1 seconds 22.5-36.0 gjav=391) PROTHROMBIN [id number] 09:27:00 Test Item Value Reference Range Comments PROTIME (BEAKER) (test gxqu=731) 14.2 seconds 11.7-14.7 INR (BEAKER) (test phwu=781) 1.1 <=5.9 RECOMMENDED COUMADIN/WARFARIN INR THERAPY RANGESSTANDARD DOSE: 2.0 - 3.0 Includes: PROPHYLAXIS forvenous thrombosis, systemic embolization; TREATMENT for venous thrombosis and/or pulmonary embolus.HIGH RISK: Target INR is 2.5-3.5 for patients with mechanical heart valves.CBC W/PLT COUNT & AUTO [id number] 09:20:00 Test Item Value Reference Range Comments WHITE BLOOD CELL COUNT (BEAKER) (test nopb=754) 5.2 K/ L 3.5-10.5 RED BLOOD CELL COUNT (BEAKER) (test vrua=423) 4.88 M/ L 4.63-6.08 HEMOGLOBIN (BEAKER) (test rzyq=374) 16.0 GM/DL 13.7-17.5 HEMATOCRIT (BEAKER) (test mvbo=014) 46.2 % 40.1-51.0 MEAN CORPUSCULAR VOLUME (BEAKER) (test ihna=852) 94.7 fL 79.0-92.2 MEAN CORPUSCULAR HEMOGLOBIN (BEAKER) (test 32.8 pg 25.7-32.2 vnsl=716) MEAN CORPUSCULAR HEMOGLOBIN CONC (BEAKER) (test 34.6 GM/DL 32.3-36.5 rlkm=474) RED CELL DISTRIBUTION WIDTH (BEAKER) (test 11.7 % 11.6-14.4 fxyc=113) PLATELET COUNT (BEAKER) (test yiut=219) 148 K/CU MM 150-450 MEAN PLATELET VOLUME (BEAKER) (test ofxv=253) 9.9 fL 9.4-12.4 NUCLEATED RED BLOOD CELLS (BEAKER) (test 0 /100 WBC 0-0 rspp=004) NEUTROPHILS RELATIVE PERCENT (BEAKER) (test 55 % thex=170) LYMPHOCYTES RELATIVE PERCENT (BEAKER) (test 33 % tgyb=412) MONOCYTES RELATIVE PERCENT (BEAKER) (test 9 % zuvk=414) EOSINOPHILS RELATIVE PERCENT (BEAKER) (test 1 % uslg=311) BASOPHILS RELATIVE PERCENT (BEAKER) (test 1 % ketw=408) NEUTROPHILS ABSOLUTE COUNT (BEAKER) (test 2.89 K/ L 1.78-5.38 jsas=122) LYMPHOCYTES ABSOLUTE COUNT (BEAKER) (test 1.72 K/ L 1.32-3.57 pjjk=347) MONOCYTES ABSOLUTE COUNT (BEAKER) (test 0.48 K/ L 0.30-0.82 qtlg=063) EOSINOPHILS ABSOLUTE COUNT (BEAKER) (test 0.06 K/ L 0.04-0.54 woib=974) BASOPHILS ABSOLUTE COUNT (BEAKER) (test 0.05 K/ L 0.01-0.08 yquk=322) IMMATURE GRANULOCYTES-RELATIVE PERCENT (BEAKER) 0 % 0-1 (test qceg=1707) BLOOD GAS, [id number] 09:12:00 Test Item Value Reference Range Comments PH ARTERIAL (BEAKER) (test oguq=308) 7.39 7.35-7.45 PCO2 ARTERIAL (BEAKER) (test vvff=846) 43 mmHg 35-45 PO2 ARTERIAL (BEAKER) (test tbbw=800) 86 mmHg 80-90 O2 SATURATION ARTERIAL (BEAKER) (test mair=555) 96.5 % 96.0-97.0 HCO3 ARTERIAL (BEAKER) (test vvbh=557) 26 mmol/L 21-29 BASE EXCESS ARTERIAL (BEAKER) (test tqtm=359) 0.5 mmol/L -2.0-3.0 PATIENT TEMPERATURE (BEAKER) (test ggjb=3458) 37.0 C FIO2 (BEAKER) (test nwlp=4266) 21.0 % HEREDITARY HEMOCHROMATOSIS [id number] 09:13:00 Test Item Value Reference Range Comments SCAN RESULT (test tbab=[id number]) MR, ABDOMEN, [id number] 16:36:00Referring: Dr. Luisa Naranjo Liver mass. Increasing AFP. Rule out HCC. MRI liver protocolFINAL REPORT MRI of abdomen dated to April 11, 2017 COMPARISON: Prior outside CT of the abdomen dated March 01, 2007 and August 11, 2016 Comment: Multiplanar T1 and T2-weightedimages of the abdomen, postcontrast axial and coronal T1- weighted images of the abdomen were obtained. Liver is cirrhotic in appearance with irregular margins. A 4.8 cm early enhancing mass is seen in the segment 5 liver adjacent to the intrahepatic IVC. There is delayed washout. Focal fatty metamorphosis is identified in the mass. This lesion is compatible with the pelvis or carcinoma. There is interval increase in size of the mass since the August 11, 2016. The lesion was not seen on the most remote CT examination dated March 01, 2007. Spleen is enlarged measuring 13 x 5.4 x 11.5 cm. The splenic, superior mesenteric, portal, and hepatic veins are patent. Main portal vein measures 13 mm in diameter. No portal vein thrombosis is noted. Gallbladder is minimally distended. Several small gallstones are seen. Pancreas and adrenals are unremarkable. Both kidneys are normal in size and functioning. Noascites is present. IMPRESSION:1. Cirrhosis with splenomegaly and portal hypertension.2. Early enhancing mass in the segment 5 of the liver with delayed washout consistent with hepatocellular carcinoma.3. Cholelithiasis without biliary dilatation. Signed: Jony Escudero MDReport Verified Date/Time: 04/11/2017 16:36: 37 Reading Location: [facility] C0[facility] CT Body Reading Room CT, CHEST, WITHOUT [id number] 13:25:00Referring: Dr. Luisa Famiver mass. Rule out metastatic disease.FINAL REPORT CT of the Chest dated 04/11/2017 CLINICAL INFORMATION: Neoplasm: chest, metastatic, suspected Comment: Axial images of the chest were obtained from thoracic inlet tothe upper abdomen without intravenous contrast. This exam was performed according to our departmental dose-optimization program, which includes automated exposure control, adjustment of the mA and/or kV according to patient size and/or use of interactive reconstruction technique. Heart is normal in size. Great vessels are unremarkable. No adenopathy in the mediastinum or perihilar region. Trachea and mainstem bronchi are patent. There is minimal scarring versus subsegmental atelectasis in the left lung base. The rest of the lungs are clear. No nodular , mass lesion or airspace disease is noted. No interstitial disease or bronchiectasis is present. No pleural effusion or pleural based mass is seen. Visualized upper abdomen demonstrates no focal lesion. Impression: No metastatic disease in the chest. Signed: Jony Escuderoepradha Verified Date/Time : 04/11/2017 13:25:29 Reading Location: [address] Body Reading Room ALPHA-1- [id number] 10:20:00 Test Item Value Reference Range Comments ALPHA-1 ANTITRYPSIN (BEAKER) (test qolf=960) 145.00 mg/dL 90.00-200.00 ANTI-NUCLEAR ANTIBODY (VENITA)2017-04-06 08:55:00 Test Item Value Reference Range Comments ANTI-NUCLEAR ANTIBODY (VENITA) (BEAKER) (test Positive Negative otfv=776) VENITA TITER AND [id number] 08:55:00 Test Item Value Reference Range Comments VENITA TITER (BEAKER) (test mbov=9280) :640 VENITA PATTERN (BEAKER) (test wopz=7395) Homogeneous HEPATITIS A ANTIBODY, [id number] 17:39:00 Test Item Value Reference Range Comments HEPATITIS A IGG ANTIBODY (BEAKER) (test ccuq=4681) Reactive Nonreactive HEPATITIS B SURFACE [id number] 17:39:00 Test Item Value Reference Range Comments HEPATITIS B SURFACE ANTIBODY (BEAKER) (test < mIU/mL <8.0 chml=937) CARCINOEMBRYONIC ANTIGEN (CEA)2017-04-05 17:38:00 Test Item Value Reference Range Comments CARCINOEMBRYONIC ANTIGEN (BEAKER) (test qgzm=839) 3.4 ng/mL 0.0-5.0 [id number] 17:38:00 Test Item Value Reference Range Comments FERRITIN (BEAKER) (test jnzt=365) 46 ng/mL 5-275 ALPHA FETOPROTEIN (AFP), TUMOR [id number] 17:36:00 Test Item Value Reference Range Comments ALPHA-FETOPROTEIN (BEAKER) (test ghjx=3642) 194.2 ng/mL <10.0 HEPATITIS B CORE ANTIBODY, [id number] 17:36:00 Test Item Value Reference Range Comments HEPATITIS B CORE TOTAL ANTIBODY (BEAKER) (test Nonreactive Nonreactive ztxt=032) HEPATITIS B SURFACE [id number] 17:34:00 Test Item Value Reference Range Comments HEPATITIS B SURFACE ANTIGEN (2) (BEAKER) (test Nonreactive Nonreactive wxep=7520) HEPATITIS C [id number] 17:34:00 Test Item Value Reference Range Comments HEPATITIS C ANTIBODY (BEAKER) (test wjed=180) Nonreactive Nonreactive PROTHROMBIN [id number] 17:20:00 Test Item Value Reference Range Comments PROTIME (BEAKER) (test hfxp=771) 13.7 seconds 11.7-14.7 INR (BEAKER) (test vqhx=815) 1.1 <=5.9 RECOMMENDED COUMADIN/WARFARIN INR THERAPY RANGESSTANDARD DOSE: 2.0 - 3.0 Includes: PROPHYLAXIS forvenous thrombosis, systemic embolization; TREATMENT for venous thrombosis and/or pulmonary embolus.HIGH RISK: Target INR is 2.5-3.5 for patients with mechanical heart valves.COMPREHENSIVE METABOLIC [id number] 17:17:00 Test Item Value Reference Range Comments TOTAL PROTEIN (BEAKER) 7.4 gm/dL 6.0-8.3 (test wfpt=187) ALBUMIN (BEAKER) (test 4.4 g/dL 3.5-5.0 ednt=7342) ALKALINE PHOSPHATASE 68 U/L 40-150 (BEAKER) (test jwkb=709) BILIRUBIN TOTAL (BEAKER) 0.4 mg/dL 0.2-1.2 (test wmca=014) SODIUM (BEAKER) (test 139 meq/L 136-145 zieu=410) POTASSIUM (BEAKER) (test 3.7 meq/L 3.5-5.1 pynl=405) CHLORIDE (BEAKER) (test 103 meq/L 98-107 yvvc=698) CO2 (BEAKER) (test 25 meq/L 22-29 ceiw=141) BLOOD UREA NITROGEN 19 mg/dL 7-21 (BEAKER) (test jdzo=791) CREATININE (BEAKER) (test 0.75 mg/dL 0.57-1.25 rvym=068) GLUCOSE RANDOM (BEAKER) 77 mg/dL 70-105 (test ckbd=102) CALCIUM (BEAKER) (test 9.5 mg/dL 8.4-10.2 epdg=604) AST (SGOT) (BEAKER) (test 19 U/L 5-34 heee=592) ALT (SGPT) (BEAKER) (test 26 U/L 6-55 ivws=199) EGFR (BEAKER) (test 104 mL/min/1.73 sq ESTIMATED GFR IS NOT ndux=6101) m ACCURATE CREATININE CLEARANCE IN PREDICTING GLOMERULAR FILTRATION RATE. ESTIMATED GFR IS NOT APPLICABLE FOR DIALYSIS PATIENTS. BILIRUBIN, [id number] 17:17:00 Test Item Value Reference Range Comments BILIRUBIN DIRECT (BEAKER) (test nbqc=548) 0.2 mg/dL 0.1-0.5 IRON, TIBC, % SAT. (WITHOUT FERRITIN)2017-04-05 17:13:00 Test Item Value Reference Range Comments IRON (BEAKER) (test oawm=409) 155 ug/dL 40-160 TOTAL IRON BINDING CAPACITY (BEAKER) (test 306 ug/dL 250-450 ertp=158) IRON % SATURATION (2) (BEAKER) (test ythb=5614) 51 % 20-55 CBC W/PLT COUNT & AUTO [id number] 16:47:00 Test Item Value Reference Range Comments WHITE BLOOD CELL COUNT (BEAKER) (test tcsa=035) 7.3 K/ L 3.5-10.5 RED BLOOD CELL COUNT (BEAKER) (test payx=313) 4.90 M/ L 4.63-6.08 HEMOGLOBIN (BEAKER) (test cheg=567) 16.4 GM/DL 13.7-17.5 HEMATOCRIT (BEAKER) (test gydz=089) 46.0 % 40.1-51.0 MEAN CORPUSCULAR VOLUME (BEAKER) (test euah=891) 93.9 fL 79.0-92.2 MEAN CORPUSCULAR HEMOGLOBIN (BEAKER) (test 33.5 pg 25.7-32.2 suil=655) MEAN CORPUSCULAR HEMOGLOBIN CONC (BEAKER) (test 35.7 GM/DL 32.3-36.5 qurf=794) RED CELL DISTRIBUTION WIDTH (BEAKER) (test 11.3 % 11.6-14.4 yfcs=401) PLATELET COUNT (BEAKER) (test zrps=628) 165 K/CU MM 150-450 MEAN PLATELET VOLUME (BEAKER) (test jrmv=920) 10.0 fL 9.4-12.4 NUCLEATED RED BLOOD CELLS (BEAKER) (test 0 /100 WBC 0-0 smhi=644) NEUTROPHILS RELATIVE PERCENT (BEAKER) (test 60 % strf=252) LYMPHOCYTES RELATIVE PERCENT (BEAKER) (test 29 % lhae=361) MONOCYTES RELATIVE PERCENT (BEAKER) (test 9 % mzno=085) EOSINOPHILS RELATIVE PERCENT (BEAKER) (test 1 % qytq=697) BASOPHILS RELATIVE PERCENT (BEAKER) (test 1 % qmct=928) NEUTROPHILS ABSOLUTE COUNT (BEAKER) (test 4.33 K/ L 1.78-5.38 fwhw=782) LYMPHOCYTES ABSOLUTE COUNT (BEAKER) (test 2.13 K/ L 1.32-3.57 bbld=600) MONOCYTES ABSOLUTE COUNT (BEAKER) (test 0.64 K/ L 0.30-0.82 nuda=704) EOSINOPHILS ABSOLUTE COUNT (BEAKER) (test 0.08 K/ L 0.04-0.54 jvhp=610) BASOPHILS ABSOLUTE COUNT (BEAKER) (test 0.05 K/ L 0.01-0.08 fpsq=619) IMMATURE GRANULOCYTES-RELATIVE PERCENT (BEAKER) 0 % 0-1 (test gbmh=9877)
[2019-02-01] MEDS ORDERED: ONDANSETRON 4 MG/2 ML VIAL ONE (16:43)
[2019-02-01] MEDS ORDERED: WATER FOR INJ,STERILE 10 ML ONE (16:43)
[2019-02-01] MEDS ORDERED: NA CHLORIDE 0.9% 1,000 ML ONE (16:43)
[2019-02-01] MEDS ORDERED: PANTOPRAZOLE 40 MG INJ ONE (16:43)
[2019-02-01 16:50] LABS: Protime INR 2.33
[2019-02-01 16:51] LABS: Absolute Lymphocytes (CBC) 0.9 K/uL (0.7-4.9); Basophils % 0.4 % (0-1.3); Hematocrit 45.2 % (39.6-49.0); Lymphocytes % 13.3 % (15.3-44.8); RBC Red Blood Cell Count 4.56 M/uL (4.33-5.43)
[2019-02-01 17:04] LABS: MPV 9.1 fL (7.6-11.3)
[2019-02-01 17:09] LABS: Albumin 2.9 g/dL (3.4-5.0); Alkaline Phosphatase 224 U/L (45-117); BUN Blood Urea Nitrogen 100 mg/dL (7-18); Bicarbonate 26 mmol/L (21-32); Bilirubin Direct 3.9 mg/dL (0-0.2); Glucose Level 105 mg/dL (74-106); Lipase 942 U/L (73-393); Magnesium 2.3 mg/dL (1.8-2.4); NT PRO-BNP 536 pg/mL (<125); Protein, Total 6.4 g/dL (6.4-8.2); Sodium Level 138 mmol/L (136-145); Troponin (Emerg Dept Use Only) < 0.02 ng/mL (0.0-0.045)
[2019-02-01 17:12] LABS: ALT/SGPT 1304 U/L (12-78); AST/SGOT 1169 U/L (15-37); Bilirubin Total 5.4 mg/dL (0.2-1.0)
[2019-02-01] MEDS ORDERED: CEFTRIAXONE/SWI 1gm 1 GM/10 ML SYR ONE (17:18)
[2019-02-01] MEDS ORDERED: METRONIDAZOLE 500mg IVPB 500 MG/100 ML BAG IV ONE (17:19)
[2019-02-01] MEDS ORDERED: NA CHLORIDE 0.9% 2,000 ML ONE (17:19)
--- NOTE | 2019-02-01 17:26 | ER ---
Nurse's Notes [facility] Name: Kenrick Valencia Age: 68 yrs Sex: Male : 1950 Arrival Date: 02/01/2019 Time: 16:04 Bed 5 Private MD: Diagnosis: Acute kidney failure;Unspecified cirrhosis of liver;Ascites;Volume depletion;Coagulation defect, unspecified;Acute pancreatitis Presentation: 02/01 16:05 Presenting complaint: Patient states: i have been feeling tired and sleepy and just out tw2 of it for 2 or 3 days, my stomach is distended as well i have liver cancer, i dont know if i have the flu or what, i am coughing some phlegm yellowish up. Transition of care: patient was not received from another setting of care. Onset of symptoms was February 01, 2019. Risk Assessment: Do you want to hurt yourself or someone else? Patient reports no desire to harm self or others. Initial Sepsis Screen: Does the patient meet any 2 criteria? No. Patient's initial sepsis screen is negative. Does the patient have a suspected source of infection? No. Patient's initial sepsis screen is negative. Care prior to arrival: None. 16:05 Method Of Arrival: Wheelchair tw2 16:05 Acuity: HARIS 3 tw2 16:05 Presenting complaint: Significant other states: Dr. Orourke cant see him tomorrow but tw2 i think his liver might be failing him now because his stomach is swollen now. Triage Assessment: 16:08 General: Appears uncomfortable, Behavior is calm, cooperative, appropriate for age. tw2 Pain: Complains of pain in abdomen GI: Abdomen is round distended. Derm: Skin is jaundiced. Historical: - Allergies: 16:08 No Known Allergies; tw2 - Home Meds: 16:08 pantoprazole 40 mg oral TbEC 1 tab once daily [Active]; Vitamin D3 2,000 unit oral cap tw2 [Active]; Furosemide Oral [Active]; - PMHx: 16:08 Liver Cancer; hemachromatosis; tw2 - Immunization history:: Adult Immunizations. - Social history:: Smoking status: Patient uses tobacco products, smokes one pack cigarettes per day. - Ebola Screening: : Patient denies travel to an Ebola-affected area in the 21 days before illness onset. Screenin:20 Abuse screen: Denies threats or abuse. Denies injuries from another. Nutritional ca1 screening: Nutritional screening: No deficits noted. Tuberculosis screening: No symptoms or risk factors identified. Fall Risk IV access (20 points). Ambulatory Aid- Crutches/Cane/Walker (15 pts). Gait- Weak (10 pts.). Total Velazquez Fall Scale indicates High Risk Score (45 or more points). Fall prevention measures have been instituted. Side Rails Up X 2 Family Present and informed to notify staff if the need to leave the bedside As available patient and family educated on Fall Prevention Program and Strategies. Assessment: 16:20 General: Appears in no apparent distress. ill, slender, Behavior is calm, cooperative, ca1 appropriate for age, Reports feeling ill for 8 days. fatigue for for 8 days. Pain: Denies pain. Neuro: Level of Consciousness is awake, alert, obeys commands, Oriented to person, place, time, situation. Cardiovascular: Heart tones S1 S2 present Capillary refill < 3 seconds Patient's skin is warm and dry. Pulses are all present. Rhythm is sinus rhythm. Respiratory: Airway is patent Respiratory effort is even, unlabored, Respiratory pattern is regular, symmetrical, Breath sounds are clear bilaterally. GI: Abdomen is round non-distended, noted to have ascites, Bowel sounds present X 4 quads. Abd is soft and non tender X 4 quads. Reports anorexia, bloating, nausea. : No deficits noted. No signs and/or symptoms were reported regarding the genitourinary system. EENT: No deficits noted. No signs and/or symptoms were reported regarding the EENT system. Derm: Skin is intact, is thin, with poor turgor Skin is dry, Skin is jaundiced, Skin temperature is warm. Musculoskeletal: Circulation, motion, and sensation intact. Capillary refill < 3 seconds, Swelling present in right foot and left foot. 17:09 Reassessment: Patient appears in no apparent distress at this time. No changes from ca1 previously documented assessment. Patient and/or family updated on plan of care and expected duration. Pain level reassessed. 18:00 Reassessment: Patient appears in no apparent distress at this time. Patient and/or ca1 family updated on plan of care and expected duration. Pain level reassessed. 18:26 Reassessment: Assisted pt to bedside commode. ca1 18:42 Reassessment: BM x 1, Urine - 0. ca1 19:00 Reassessment: Patient appears in no apparent distress at this time. Patient and/or ca1 family updated on plan of care and expected duration. Pain level reassessed. 19:15 General: Appears in no apparent distress. ill, slender, Behavior is calm, cooperative, rr5 appropriate for age. 19:15 Pain: Denies pain. Neuro: Level of Consciousness is awake, alert, obeys commands, rr5 Oriented to person, place, time, situation. Cardiovascular: Capillary refill < 3 seconds Patient's skin is warm and dry. Edema. Respiratory: Airway is patent Respiratory effort is even, unlabored, Respiratory pattern is regular, symmetrical. GI: Abdomen is round distended, noted to have ascites, Bowel sounds present X 4 quads. Abd is soft Reports anorexia, bloating, nausea. : No signs and/or symptoms were reported regarding the genitourinary system. EENT: No signs and/or symptoms were reported regarding the EENT system. Derm: Skin is intact, is thin, with poor turgor Skin temperature is warm. Musculoskeletal: Capillary refill < 3 seconds. 19:50 Reassessment: call made to [facility] spoke to Nina NATHAN and accepted the case. rr5 20:35 Reassessment: Patient appears in no apparent distress at this time. No changes from rr5 previously documented assessment. Patient is alert, oriented x 3, equal unlabored respirations, skin warm/dry/pink. awaiting for EMS transfer. 21:20 Reassessment: Patient appears in no apparent distress at this time. Patient is alert, rr5 oriented x 3, equal unlabored respirations, skin warm/dry/pink. report given to [facility], vitally stable breathing spontaneously at room air. no complaints made. Vital Signs: 16:09 BP 119 / 89; Pulse 86; Resp 17; Temp 97.3(TE); Pulse Ox 95% on R/A; Weight 88.45 kg tw2 (R); Pain 8/10; 16:54 BP 105 / 90; Pulse 85; Resp 17 S; Pulse Ox 94% on R/A; ca1 17:09 BP 108 / 76; Pulse 84; Resp 16 S; Pulse Ox 94% on R/A; ca1 17:31 BP 135 / 87; Pulse 80; Resp 17 S; Pulse Ox 96% on R/A; ca1 18:00 BP 122 / 66; Pulse 83; Resp 17 S; Pulse Ox 97% on R/A; ca1 18:42 BP 147 / 90; Pulse 80; Resp 17 S; Pulse Ox 100% on R/A; ca1 19:22 BP 132 / 83; Pulse 75; Resp 16; Temp 97.5; Pulse Ox 99% ; Pain 0/10; rr5 20:25 BP 132 / 94; Pulse 81; Resp 17; Pulse Ox 97% ; rr5 21:19 BP 131 / 95; Pulse 83; Resp 19; Temp 97.8; Pulse Ox 96% on R/A; rr5 ED Course: 16:04 Patient arrived in ED. mr 16:06 Triage completed. tw2 16:08 Arm band placed on. tw2 16:09 Bed in low position. Call light in reach. Adult w/ patient. tw2 16:10 Radha Lo, JAC is Primary Nurse. ca1 16:13 Yon Aviles MD is Attending Physician. lui 16:20 Patient has correct armband on for positive identification. waiter/waitress formal on. Pulse ca1 ox on. NIBP on. Warm blanket given. 16:20 No provider procedures requiring assistance completed. ca1 16:29 Inserted saline lock: 20 gauge in right antecubital area, using aseptic technique. ca1 Blood collected. 16:29 Initial lab(s) drawn, by ms, sent to lab. First set of blood cultures drawn by me. ca1 16:33 EKG done, by ED staff, reviewed by Yon Aviles MD. jb1 16:50 Second set of blood cultures drawn by me. ca1 17:13 Notified ED physician of a critical lab result(s). AST 1169,ALT 1304, Total Veto 5.4. sg 17:32 Patient transferred, IV remains in place. ca1 18:[address] Aviles with [facility] from the [facility]. eb 19:13 Report given to JAC Lima. ca1 Administered Medications: 16:37 Drug: ProTONIX 40 mg Route: IVP; Site: right antecubital; ca1 17:10 Follow up: Response: No adverse reaction; Nausea is decreased ca1 16:40 Drug: NS 0.9% 500 ml Route: IV; Rate: bolus; Site: right antecubital; ca1 17:57 Follow up: Response: No adverse reaction; IV Status: Completed infusion; IV Intake: ca1 500ml 16:42 Drug: Zofran 4 mg Route: IVP; Site: right antecubital; ca1 17:11 Follow up: Response: No adverse reaction ca1 17:20 Drug: NS 0.9% 1000 ml Route: IV; Rate: 1 bolus; Site: right antecubital; ca1 18:17 Follow up: Response: No adverse reaction; IV Status: Completed infusion; IV Intake: ca1 1000ml 17:20 Drug: Vitamin K1 10 mg Route: Sub-Q; Site: right lower abdomen; ca1 18:43 Follow up: Response: No adverse reaction ca1 17:22 Drug: Rocephin 1 grams Route: IV; Rate: per protocol; Site: right antecubital; ca1 17:56 Follow up: Response: No adverse reaction; IV Status: Completed infusion ca1 17:25 Drug: Flagyl 500 mg Volume: 100 ml; Route: IVPB; Rate: 200 ml/hr; Infused Over: 30 ca1 mins; Site: right antecubital; 17:57 Follow up: Response: No adverse reaction; IV Status: Completed infusion ca1 17:28 Drug: NS 0.9% 1000 ml Route: IV; Rate: 1 bolus; Site: right antecubital; ca1 18:17 Follow up: Response: No adverse reaction; IV Status: Completed infusion; IV Intake: ca1 1000ml 18:17 Drug: NS 0.9% 1000 ml Route: IV; Rate: 125 ml/hr; Site: right antecubital; ca1 18:30 Follow up: IV Status: Infusion continued upon transfer ca1 21:21 Follow up: Response: No adverse reaction; IV Status: Infusion continued upon transfer; rr5 IV Intake: 250ml Intake: 17:57 IV: 500ml; Total: 500ml. ca1 18:17 IV: 1000ml; Total: 1500ml. ca1 18:17 IV: 1000ml; Total: 2500ml. ca1 21:21 IV: 250ml; Total: 2750ml. rr5 Outcome: 17:25 ER care complete, transfer ordered by MD. poe 21:19 Transferred by [facility] to [facility], Transfer form completed. rr5 21:19 Condition: stable 21:19 Instructed on the need for transfer. 21:22 Patient left the ED. rr5 Signatures: Enrique Limon jb1 Xavier Doshi, RN RN sg Yon Aviles MD MD cha Rivera, Mary mr Peggy Shaw, RN RN tw2 Erin Marquez Raymond, RN RN rr5 Radha Lo, RN RN ca1 Corrections: (The following items were deleted from the chart) 16:54 16:20 GI: Abdomen is round non-distended, Bowel sounds present X 4 quads. Abd is soft ca1 and non tender X 4 quads. Reports nausea, ca1 17:30 16:20 GI: Abdomen is round non-distended, Bowel sounds present X 4 quads. Abd is soft ca1 and non tender X 4 quads. Reports anorexia, bloating, nausea, ca1 18:29 18:00 BP 113 / 69; Pulse 74bpm; Resp 17bpm; Spontaneous; Pulse Ox 97% RA; ca1 ca1 19:44 16:20 Musculoskeletal: Circulation, motion, and sensation intact. Capillary refill < 3 ca1 seconds, ca1 21:21 21:19 BP 131 / 95; Pulse 83bpm; Resp 19bpm; Pulse Ox 96% RA; rr5 rr5
--- NOTE | 2019-02-01 17:26 | EDPHYS ---
Physician Documentation [facility] Name: Kenrick Valencia Age: 68 yrs Sex: Male : 1950 Arrival Date: 02/01/2019 Time: 16:04 Bed 5 Private MD: ED Physician Yon Aviles HPI: 02/01 16:32 This 68 yrs old Male presents to ER via Wheelchair with complaints of lui Abdominal Distention, General Weakness. 16:32 The patient presents with abdominal pain. lui Historical: - Allergies: 16:08 No Known Allergies; tw2 - Home Meds: 16:08 pantoprazole 40 mg oral TbEC 1 tab once daily [Active]; Vitamin D3 2,000 unit oral cap tw2 [Active]; Furosemide Oral [Active]; - PMHx: 16:08 Liver Cancer; hemachromatosis; tw2 - Immunization history:: Adult Immunizations. - Social history:: Smoking status: Patient uses tobacco products, smokes one pack cigarettes per day. - Ebola Screening: : Patient denies travel to an Ebola-affected area in the 21 days before illness onset. ROS: 16:32 Constitutional: Negative for fever, chills, and weight loss, Eyes: Negative for injury, lui pain, redness, and discharge, ENT: Negative for injury, pain, and discharge, Neck: Negative for injury, pain, and swelling, Cardiovascular: Negative for chest pain, palpitations, and edema, Respiratory: Negative for shortness of breath, cough, wheezing, and pleuritic chest pain, Back: Negative for injury and pain, : Negative for injury, bleeding, discharge, and swelling, MS/Extremity: Negative for injury and deformity, Neuro: Negative for headache, weakness, numbness, tingling, and seizure, Psych: Negative for depression, anxiety, suicide ideation, homicidal ideation, and hallucinations, Allergy/Immunology: Negative for hives, rash, and allergies, Endocrine: Negative for neck swelling, polydipsia, polyuria, polyphagia, and marked weight changes, Hematologic/Lymphatic: Negative for swollen nodes, abnormal bleeding, and unusual bruising. 16:32 Abdomen/GI: Positive for abdominal distension. 16:32 Skin: Positive for discoloration. Exam: 16:32 Constitutional: This is a well developed, well nourished patient who is awake, alert, lui and in no acute distress. Head/Face: Normocephalic, atraumatic. Eyes: Pupils equal round and reactive to light, extra-ocular motions intact. Lids and lashes normal. Conjunctiva and sclera are non-icteric and not injected. Cornea within normal limits. Periorbital areas with no swelling, redness, or edema. ENT: Nares patent. No nasal discharge, no septal abnormalities noted. Tympanic membranes are normal and external auditory canals are clear. Oropharynx with no redness, swelling, or masses, exudates, or evidence of obstruction, uvula midline. Mucous membranes moist. Neck: Trachea midline, no thyromegaly or masses palpated, and no cervical lymphadenopathy. Supple, full range of motion without nuchal rigidity, or vertebral point tenderness. No Meningismus. Chest/axilla: Normal chest wall appearance and motion. Nontender with no deformity. No lesions are appreciated. Cardiovascular: Regular rate and rhythm with a normal S1 and S2. No gallops, murmurs, or rubs. Normal PMI, no JVD. No pulse deficits. Respiratory: Lungs have equal breath sounds bilaterally, clear to auscultation and percussion. No rales, rhonchi or wheezes noted. No increased work of breathing, no retractions or nasal flaring. Back: No spinal tenderness. No costovertebral tenderness. Full range of motion. Male : Normal genitalia with no discharge or lesions. Skin: Warm, dry with normal turgor. Normal color with no rashes, no lesions, and no evidence of cellulitis. MS/ Extremity: Pulses equal, no cyanosis. Neurovascular intact. Full, normal range of motion. Neuro: Awake and alert, GCS 15, oriented to person, place, time, and situation. Cranial nerves II-XII grossly intact. Motor strength 5/5 in all extremities. Sensory grossly intact. Cerebellar exam normal. Normal gait. Psych: Awake, alert, with orientation to person, place and time. Behavior, mood, and affect are within normal limits. 16:32 Abdomen/GI: Inspection: distension, Bowel sounds: normal, Palpation: abdomen is soft and non-tender, Liver: no appreciated palpable abnormalities, Hernia: not appreciated. Vital Signs: 16:09 BP 119 / 89; Pulse 86; Resp 17; Temp 97.3(TE); Pulse Ox 95% on R/A; Weight 88.45 kg tw2 (R); Pain 8/10; 16:54 BP 105 / 90; Pulse 85; Resp 17 S; Pulse Ox 94% on R/A; ca1 17:09 BP 108 / 76; Pulse 84; Resp 16 S; Pulse Ox 94% on R/A; ca1 17:31 BP 135 / 87; Pulse 80; Resp 17 S; Pulse Ox 96% on R/A; ca1 18:00 BP 122 / 66; Pulse 83; Resp 17 S; Pulse Ox 97% on R/A; ca1 18:42 BP 147 / 90; Pulse 80; Resp 17 S; Pulse Ox 100% on R/A; ca1 19:22 BP 132 / 83; Pulse 75; Resp 16; Temp 97.5; Pulse Ox 99% ; Pain 0/10; rr5 20:25 BP 132 / 94; Pulse 81; Resp 17; Pulse Ox 97% ; rr5 21:19 BP 131 / 95; Pulse 83; Resp 19; Temp 97.8; Pulse Ox 96% on R/A; rr5 MDM: 16:13 Patient medically screened. [facility] 16:33 Data reviewed: vital signs, nurses notes, lab test result(s), EKG, radiologic studies. [facility] 02/01 16:26 Order name: Basic Metabolic Panel [facility] 02/01 16:26 Order name: CBC with Diff [facility] 02/01 16:26 Order name: LFT's [facility] 02/01 16:26 Order name: Magnesium [facility] 02/01 16:26 Order name: NT PRO-BNP [facility] 02/01 16:26 Order name: PT-INR [facility] 02/01 16:26 Order name: Troponin (emerg Dept Use Only) [facility] 02/01 16:26 Order name: Lipase [facility] 02/01 16:26 Order name: Procalcitonin [facility] 02/01 16:26 Order name: Lactate [facility] 02/01 16:26 Order name: Blood Culture Adult (2) [facility] 02/01 16:26 Order name: Urine Culture [facility] 02/01 16:32 Order name: AMMONIA [facility] 02/01 16:56 Order name: Protime (+INR); Complete Time: 17:11 [facility] 02/01 16:26 Order name: XRAY Chest (1 view) [facility] 02/01 16:26 Order name: CT Abd/Pelvis - IV Contrast Only [facility] 02/01 16:59 Order name: Ammonia; Complete Time: 17:11 [facility] 02/01 17:01 Order name: CBC with Automated Diff; Complete Time: 17:11 [facility] 02/01 17:04 Order name: Lactate; Complete Time: 17:11 [facility] 02/01 17:09 Order name: Procalcitonin; Complete Time: 17:11 [facility] 02/01 17:13 Order name: Basic Metabolic Panel; Complete Time: 17:13 [facility] 02/01 17:13 Order name: Liver (Hepatic) Function; Complete Time: 17:13 [facility] 02/01 17:13 Order name: Troponin (Emerg Dept Use Only); Complete Time: 17:13 [facility] 02/01 17:13 Order name: NT PRO-BNP; Complete Time: 17:13 [facility] 02/01 17:13 Order name: Magnesium; Complete Time: 17:13 [facility] 02/01 17:13 Order name: Lipase; Complete Time: 17:13 [facility] 02/01 17:51 Order name: CT; Complete Time: 18:09 [facility] 02/01 19:49 Order name: Lactate Sepsis 2 HR Follow-up [facility] 02/01 20:33 Order name: Urine Dipstick--Ancillary (enter results) 02/01 20:47 Order name: Urine Dipstick-Ancillary [facility] 02/01 16:26 Order name: EKG; Complete Time: 16:27 [facility] 02/01 16:26 Order name: Cardiac monitoring; Complete Time: 16:34 [facility] 02/01 16:26 Order name: EKG - Nurse/Tech; Complete Time: 16:34 [facility] 02/01 16:26 Order name: IV Saline Lock; Complete Time: 16:34 [facility] 02/01 16:26 Order name: Labs collected and sent; Complete Time: 16:34 [facility] 02/01 16:26 Order name: O2 Per Protocol; Complete Time: 16:34 [facility] 02/01 16:26 Order name: O2 Sat Monitoring; Complete Time: 16:34 [facility] 02/01 16:26 Order name: Urine Dipstick-Ancillary (obtain specimen); Complete Time: 20:36 [facility] 02/01 17:51 Order name: RAD; Complete Time: 18:09 EDMS Administered Medications: 16:37 Drug: ProTONIX 40 mg Route: IVP; Site: right antecubital; ca1 17:10 Follow up: Response: No adverse reaction; Nausea is decreased ca1 16:40 Drug: NS 0.9% 500 ml Route: IV; Rate: bolus; Site: right antecubital; ca1 17:57 Follow up: Response: No adverse reaction; IV Status: Completed infusion; IV Intake: ca1 500ml 16:42 Drug: Zofran 4 mg Route: IVP; Site: right antecubital; ca1 17:11 Follow up: Response: No adverse reaction ca1 17:20 Drug: NS 0.9% 1000 ml Route: IV; Rate: 1 bolus; Site: right antecubital; ca1 18:17 Follow up: Response: No adverse reaction; IV Status: Completed infusion; IV Intake: ca1 1000ml 17:20 Drug: Vitamin K1 10 mg Route: Sub-Q; Site: right lower abdomen; ca1 18:43 Follow up: Response: No adverse reaction ca1 17:22 Drug: Rocephin 1 grams Route: IV; Rate: per protocol; Site: right antecubital; ca1 17:56 Follow up: Response: No adverse reaction; IV Status: Completed infusion ca1 17:25 Drug: Flagyl 500 mg Volume: 100 ml; Route: IVPB; Rate: 200 ml/hr; Infused Over: 30 ca1 mins; Site: right antecubital; 17:57 Follow up: Response: No adverse reaction; IV Status: Completed infusion ca1 17:28 Drug: NS 0.9% 1000 ml Route: IV; Rate: 1 bolus; Site: right antecubital; ca1 18:17 Follow up: Response: No adverse reaction; IV Status: Completed infusion; IV Intake: ca1 1000ml 18:17 Drug: NS 0.9% 1000 ml Route: IV; Rate: 125 ml/hr; Site: right antecubital; ca1 18:30 Follow up: IV Status: Infusion continued upon transfer ca1 21:21 Follow up: Response: No adverse reaction; IV Status: Infusion continued upon transfer; rr5 IV Intake: 250ml Disposition: 02/01/19 17:25 Transfer ordered to [facility]. Diagnosis are Acute kidney failure, Unspecified cirrhosis of liver, Ascites, Volume depletion, Coagulation defect, unspecified, Acute pancreatitis. - Reason for transfer: Higher level of care. - Accepting physician is to [facility]. - Condition is Serious. - Problem is new. - Symptoms have improved. Signatures: Dispatcher [employer] EDMS Stefan, Yon, MD MD lui Shaw, Peggy, RN RN tw2 Clarence Adler RN RN rr5 Radha Lo RN RN ca1 Corrections: (The following items were deleted from the chart) 18:14 17:25 02/01/2019 17:25 Transfer ordered to [facility]. Diagnosis is lui Acute kidney failure; Unspecified cirrhosis of liver; Ascites; Volume depletion. Reason for transfer: Higher level of care. Accepting physician is to [facility]. Condition is Serious. Problem is new. Symptoms have improved. [facility] 21:22 18:14 02/01/2019 17:25 Transfer ordered to [facility]. Diagnosis is rr5 Acute kidney failure; Unspecified cirrhosis of liver; Ascites; Volume depletion; Coagulation defect, unspecified; Acute pancreatitis. Reason for transfer: Higher level of care. Accepting physician is to [facility]. Condition is Serious. Problem is new. Symptoms have improved. lui
--- NOTE | 2019-02-01 17:48 | RAD REPORT ---
EXAM DESCRIPTION: Nyasia Single View02/01/2019 4:49 pm CLINICAL HISTORY: Abdominal pain COMPARISON: none FINDINGS: Small right pleural effusion. Mild right basilar atelectasis Left lung appears clear Heart is normal size
--- NOTE | 2019-02-01 17:48 | RAD REPORT ---
EXAM DESCRIPTION: CT - Abdomen Pelvis Wo Contrast - 02/01/2019 5:19 pm CLINICAL HISTORY: Abdominal pain COMPARISON: 2017 cat scan TECHNIQUE: Computed axial tomography of the abdomen and pelvis was obtained. IV and oral contrast we re not requested. All CT scans are performed using dose optimization technique as appropriate and may include automated exposure control or mA/KV adjustment according to patient size. FINDINGS: The evaluation of solid organs, vessels and bowel is limited secondary to the lack of con trast administration. Cirrhotic liver. An approximately 7 centimeter mass is present within the right lobe of the liver enl arged from the prior CAT scan. IVC is distended which may indicate tumor thrombus A 2 centimeter right adrenal mass The spleen, pancreas, left adrenal and kidneys appear grossly normal There is no evidence of diverticulitis. Mild anterior subluxation L4 on L5. Spondylolysis L4 Cholelithiasis. Small to moderate amount of ascites is present within the abdomen. Moderate amount of ascites is pres ent within the pelvis. Small right pleural effusion. IMPRESSION: Cirrhosis. Approximately 7 centimeter hepatic mass has increased in size compatible with hepatocellular carcinom a Cholelithiasis
[2019-02-01] MEDS ORDERED: VITAMIN K (ADULT) 10 MG/ML ONE (18:21)
[2019-02-01 20:46] LABS: Urine Blood NEGATIVE (NEG); Urine Glucose NEGATIVE (NEG); Urine Protein 2+ (NEG); Urine pH 5.5 (5.0-7.0)
--- NOTE | 2019-02-01 22:52 | EKG ---
Test Date: 2019-02-01 Test Time: 16:17:54 Tobacco Buyer: AIDEN MEASUREMENT RESULTS: Intervals: Rate: 83 SD: 216 QRSD: 98 QT: 408 QTc: 479 [place]: P: 51 SD: 216 QRS: -19 T: 33 INTERPRETIVE STATEMENTS: Sinus rhythm with 1st degree AV block Low voltage QRS Septal infarct, age undetermined inferior infarct, age undetermined Abnormal ECG Compared to ECG 08/07/1997 08:18:00 First degree AV block now present Myocardial infarct finding now present Sinus bradycardia no longer present Electronically Signed On 02-01-19 22:52:12 CLOTH WEIGHER by Félxi Kathleen
[2019-02-02 04:46] VITALS: BP 115/70; TEMP 98.7; O2SAT 99
== END 2019-02-01 21:22 | disposition short-term general hospital (02) ==
LOC: ER 16:02
DX: N17.9 Acute kidney failure, unspecified (principal); K74.60 Unspecified cirrhosis of liver; R18.8 Other ascites; E86.9 Volume depletion, unspecified; K85.90 Acute pancreatitis without necrosis or infection, unspecified; D68.9 Coagulation defect, unspecified; F17.210 Nicotine dependence, cigarettes, uncomplicated; Z85.05 Personal history of malignant neoplasm of liver
CPT/HCPCS: 96365; 96361; 96368; 93005; 87040 ×2; 87088; 85025; 87086; 80048; 36415; 82140; 83735; 85610; 80076; 83605 ×2; 81003; 84484; 83690; 84145; 83880; 74176; 71045; 96375; 96372; 99285; J3430; C9113; J0696; J7030 ×2; J2405